=== PATIENT | female | born 1975 | race Caucasian/White ===

== ENCOUNTER 2016-07-22 19:41 | Inpatient (IN) | payer MEDICAID ==
--- NOTE | 2016-07-22 19:57 | ER Document Report ---
ED Medical Screen (RME) - General Stated Complaint: FEVER Mode of Arrival: Medic Information source: Patient Notes: pt c/o cough, fever, and hemoptysis. Pt states she has had a fever for the past 4 days with cough just starting yesterday. Pt c/o dizziness. Hx aortic valve replacement, cva TRAVEL OUTSIDE OF THE [place] IN LAST 30 DAYS: No - Related Data Allergies/Adverse Reactions: codeine [Codeine] Allergy (Mild, Verified 03/06/16 16:53) Nausea "STOMACH BURNING" Past Medical History - Past Medical History Cardiac Medical History: Denies: Hx Coronary Artery Disease, Hx Heart Attack, Hx Hypertension Pulmonary Medical History: Denies: Hx Asthma, Hx Bronchitis, Hx COPD, Hx Pneumonia Neurological Medical History: Reports: Hx Cerebrovascular Accident Endocrine Medical History: Denies: Hx Diabetes Mellitus Type 2 Renal/ Medical History: Reports: Hx Kidney Stones GI Medical History: Denies: Hx Gastritis, Hx Gastroesophageal Reflux Disease Musculoskeltal Medical History: Reports Hx Arthritis - Hips Past Surgical History: Reports: Hx Cardiac Surgery - mechanical aortic valve replacement, Hx Section - x2, Hx Orthopedic Surgery - L5 S1 fusion, Hx Tubal Ligation - Immunizations Hx Diphtheria, Pertussis, Tetanus Vaccination: Yes Physical Exam - Respiratory Respiratory status: No respiratory distress Breath sounds: Productive cough
[2016-07-22 21:44] LABS: HEMATOCRIT 35.2 % (36.0-47.0); HEMOGLOBIN 12.1 g/dL (12.0-15.5); HGB HCT DIFFERENCE 1.1; MEAN CORPUSCULAR HEMOGLOBIN 29.8 pg (27.0-33.4); MEAN CORPUSCULAR HGB CONC 34.3 g/dL (32.0-36.0); MEAN CORPUSCULAR VOLUME 87 fl (80-97); RED BLOOD COUNT 4.06 10^6/uL (3.72-5.28); RED CELL DISTRIBUTION WIDTH 14.2 % (11.5-14.0); WHITE BLOOD COUNT 15.6 10^3/uL (4.0-10.5)
[2016-07-22 22:03] LABS: BAND NEUTROPHILS % (MANUAL) 5 % (3-5); BASOPHILS % (MANUAL) 0 % (0-2); EOSINOPHILS % (MANUAL) 0 % (0-6); LYMPHOCYTES % (MANUAL) 3 % (13-45); TOTAL CELLS COUNTED 100
[2016-07-22 22:05] LABS: ANISOCYTOSIS SLIGHT; PLATELET CLUMPS PRESENT; POLYCHROMASIA SLIGHT; TOXIC VACUOLATION PRESENT
[2016-07-22 22:16] LABS: ALANINE AMINOTRANSFERASE 141 U/L (9-52); ALBUMIN 3.9 g/dL (3.5-5.0); ALKALINE PHOSPHATASE 182 U/L (38-126); ANION GAP 12 (5-19); ASPARTATE AMINO TRANSFERASE 83 U/L (14-36); BILIRUBIN,TOTAL 0.6 mg/dL (0.2-1.3); BLOOD UREA NITROGEN 13 mg/dL (7-20); CALCIUM 9.6 mg/dL (8.4-10.2); CARBON DIOXIDE 27 mmol/L (22-30); CHLORIDE 100 mmol/L (98-107); CREATININE RESULT 0.62 mg/dL (0.52-1.25); GLUCOSE 114 mg/dL (75-110); POTASSIUM 3.6 mmol/L (3.6-5.0)
[2016-07-22] MEDS ORDERED: CEFTRIAXONE 1 GM/D5W RTU 50 ML IV ONE (22:22)
[2016-07-22] MEDS ORDERED: AZITHROMYCIN 250 MG TABLET PO ONE (22:22)
[2016-07-22] MEDS ORDERED: NORMAL SALINE 1000 ML 1,000 ML IV ONE (22:22)
[2016-07-22 22:32] LABS: PROTHROMBIN TIME 85.4 SEC (11.4-15.4)
--- NOTE | 2016-07-22 22:34 | EKG REPORT ---
SEVERITY:- ABNORMAL ECG - SINUS TACHYCARDIA VENTRICULAR TRIGEMINY PROBABLE LEFT ATRIAL ABNORMALITY NONSPECIFIC INFEROLATERAL ST CHANGES : Confirmed by: Barry Mccarthy MD 22-Jul-2016 22:33:40
--- NOTE | 2016-07-22 23:24 | ER Document Report ---
ED General - General Chief Complaint: Fever Stated Complaint: FEVER Mode of Arrival: Medic Notes: Patient is a 40-year-old female with past medical history of rheumatic fever with subsequent aortic valve replacement with mechanical heart valve who presents with 2 days of progressively worsening cough, sputum production and shortness of breath. She has had a fever of 102.7F at home. She has used Tylenol at home at with improvement of the fever. Denies a history of similar symptoms in the past. She has not had any sick contacts. She has not spoken to her primary care physician regarding today's concerns. Nothing improves or worsens or symptoms. She does note associated nausea without vomiting. States she "feels terrible". TRAVEL OUTSIDE OF THE [place] IN LAST 30 DAYS: No - Related Data Allergies/Adverse Reactions: codeine [Codeine] Allergy (Mild, Verified 03/06/16 16:53) Nausea "STOMACH BURNING" Home Medications: Current Home Medications Hydrocodone/Acetaminophen [Vicodin Es 7.5-300 mg Tablet] 1 tab PO BID 07/22/16 [ History] Metoprolol Tartrate 25 mg PO QHS 07/22/16 [History] Zolpidem Tartrate [Ambien 5 mg Tablet] 5 mg PO QHS 07/22/16 [History] Past Medical History - General Information source: Patient - Social History Smoking Status: Never Smoker Frequency of alcohol use: None Drug Abuse: None Lives with: Spouse/Significant other Family History: Reviewed & Not Pertinent - Past Medical History Cardiac Medical History: Denies: Hx Coronary Artery Disease, Hx Heart Attack, Hx Hypertension Pulmonary Medical History: Denies: Hx Asthma, Hx Bronchitis, Hx COPD, Hx Pneumonia Neurological Medical History: Reports: Hx Cerebrovascular Accident Endocrine Medical History: Denies: Hx Diabetes Mellitus Type 2 Renal/ Medical History: Reports: Hx Kidney Stones GI Medical History: Denies: Hx Gastritis, Hx Gastroesophageal Reflux Disease Musculoskeltal Medical History: Reports Hx Arthritis - Hips Past Surgical History: Reports: Hx Cardiac Surgery - mechanical aortic valve replacement, Hx Section - x2, Hx Orthopedic Surgery - L5 S1 fusion, Hx Tubal Ligation - Immunizations Hx Diphtheria, Pertussis, Tetanus Vaccination: Yes Review of Systems - Review of Systems Notes: Constitutional: Positive for fever. HENT: Negative for sore throat. Eyes: Negative for visual changes. Cardiovascular: Negative for chest pain. Respiratory: Positive for shortness of breath. Gastrointestinal: Negative for abdominal pain, vomiting or diarrhea. Genitourinary: Negative for dysuria. Musculoskeletal: Negative for back pain. Skin: Negative for rash. Neurological: Negative for headaches, weakness or numbness. 10 point ROS negative except as marked above and in HPI. Physical Exam - Vital signs Vitals: Temp Pulse Resp BP Pulse Ox 99.9 F 113 H 18 106/75 97 07/22/16 19:53 07/22/16 19:53 07/22/16 19:53 07/22/16 19:53 07/22/16 19:53 Interpretation: Tachycardic Notes: PHYSICAL EXAMINATION: GENERAL: Moderately ill in appearance but in no acute distress HEAD: Atraumatic, normocephalic. EYES: Pupils equal round and reactive to light, extraocular movements intact, sclera anicteric, conjunctiva are normal. ENT: nares patent, oropharynx clear without exudates. Dry mucous membranes. NECK: Normal range of motion, supple without lymphadenopathy LUNGS: Faint rhonchi bilaterally. Air movement bilaterally. Mild tachypnea with respiratory rate of 24. No respiratory distress. HEART: Regular tachycardia with a mechanical click. ABDOMEN: Soft, nontender, normoactive bowel sounds. No guarding, no rebound. No masses appreciated. EXTREMITIES: Normal range of motion, no pitting or edema. No cyanosis. NEUROLOGICAL: No focal neurological deficits. Moves all extremities spontaneously and on command. PSYCH: Normal mood, normal affect. SKIN: Warm, Dry, normal turgor, no rashes or lesions noted. Course - Re-evaluation Re-evalutation: 07/23/16 04:08 Patient presents with sepsis likely secondary to multifocal pneumonia seen on chest x-ray. She does have clinical history that is consistent with this diagnosis. She did arrive tachycardic, tachypneic, and has been febrile up to 102.7 at home. She does have an elevated white blood cell count. No respiratory distress. Her INR is supratherapeutic at 10 but she does not have any active bleeding to warrant emergent reversal. Given her overall ill appearance, initial vitals, laboratories, and finding of multifocal pneumonia as well as severely supratherapeutic INR, she has been admitted to the hospitalist Dr. Soliz this time. - Vital Signs Vital signs: Temp Pulse Resp BP Pulse Ox 98.1 F 76 19 113/66 98 07/23/16 02:24 07/23/16 02:24 07/23/16 02:24 07/23/16 02:24 07/23/16 02:24 - Laboratory Result Diagrams: 07/22/16 21:34 07/22/16 21:34 Laboratory results interpreted by me: 07/22/16 07/22/16 07/22/16 21:34 21:34 22:08 WBC 15.6 H Hct 35.2 L RDW 14.2 H Seg Neuts % (Manual) 89 H Lymphocytes % (Manual) 3 L Monocytes % (Manual) 2 L Abs Neuts (Manual) 14.7 H PT 85.4 H* INR 10.03 H* Glucose 114 H AST 83 H ALT 141 H Alkaline Phosphatase 182 H - Diagnostic Test Radiology reviewed: Image reviewed, Reports reviewed Radiology results interpreted by me: 07/23/16 04:09 Chest x-ray: Bilateral infiltrates - EKG Interpretation by Me Additional EKG results interpreted by me: 07/23/16 04:09 Sinus rhythm. Rate 97. Intermittent PVCs. No ST elevations or depressions. QTC 432. Discharge - Discharge Clinical Impression: Multifocal pneumonia Sepsis Qualifiers: Sepsis type: sepsis due to unspecified organism Qualified Code(s): A41.9 - Sepsis, unspecified organism Condition: Fair Disposition: ADMITTED INPATIENT Admitting Provider: [facility] Unit Admitted: Telemetry
[2016-07-23] MEDS ORDERED: IPRATROPIUM/ALBUTEROL 0.5-2.5 MG/3 ML AMPUL NEB PRN (00:50)
[2016-07-23] MEDS ORDERED: GUAIFENESIN SYRP 200 MG/10 ML UDC PO PRN (00:50)
[2016-07-23] MEDS ORDERED: ACETAMINOPHEN 325 MG TABLET PO PRN (00:50)
[2016-07-23] MEDS ORDERED: PROMETHAZINE HCL INJ 25 MG/1 ML VIAL IV PRN (00:57)
--- NOTE | 2016-07-23 01:23 | PDOC H&P ---
History of Present Illness Admission Date/PCP: 07/22/16 23:33 RICHA GUZMAN MD Patient complains of: fever, cough History of Present Illness: AIYANA HARTMAN is a 40 year old female without known underlying chronic pulmonary disease who presents to the emergency room for evaluation of above complaint. Patient has been discussed with emergency room physician who evaluated the patient. 4 day history of fever to 102.9, slightly productive cough some mild dizziness. Streaks of blood in her sputum on occasion, but not very much or very often. Positive nausea, but no vomiting. Intermittent mild heartburn. No bowel movement for several days. Son recently with RSV, along with daughter with a recent upper respiratory tract infection No antibiotic use for at least the past 3 months. No recent change in her Coumadin dosage. However, patient does state she took at least one extra dose of Coumadin this past week. Doesn't take flu vaccinations since she gets "sick" whenever she takes them. Comcomitant medical problems include history of a mechanical aortic valve replacement in 1992, on chronic Coumadin for same, posttraumatic stress disorder, easy bruising, chronic back pain, history of mild reflux, distant history of nephrolithiasis 1, and personal history of stroke in 1994 when with her son, without residual after effects.. Laboratory results are listed in [employer] and are reviewed. X-ray summary results are listed below, with full report(s) reviewed. . EKG reviewed and compared to prior tracing from 12/22/2013. Social history/personal habits: . Has children. Works from home. Active cigarettes per day. No alcohol use. Smokes marijuana. Family History : Children and siblings and father are healthy. Mother is alive , and alcoholic. Allergies/adverse reactions are listed in [employer] and are reviewed. Home medications are reviewed by discussion with patient and review of a hand written list provided by same and are to be reconc[facility]. Home medications initially autopopulated into [employer] may not accurately reflect patient's true medications, dosages, and/or frequencies. REVIEW OF SYSTEMS: Constitutional: See history and present illness. Eyes: Needs glasses but currently does not have any. ENT: No swallowing problems or complaints. No hearing problems or complaints. Pulmonary: See history and present illness. Cardiovascular: No current complaints, including chest pain. Gastrointestinal: See history and present illness. Skin: No current complaints, including rashes. Hematologic: Easy bruising. Neurologic: No current complaints, including numbness or tingling. Musculoskeletal: Chronic back pain. Psychiatric: Posttraumatic stress disorder. Endocrine: No current complaints, including polyuria. Genitourinary: No current complaints, including dysuria. PHYSICAL EXAMINATION: 5 feet 10 inches tall. 78.3 kg. BMI 24.8 kg/m. Blood pressure 103/69. Pulse 80 and regular. 95% saturation on room air. Respirations are 16 and unlabored. Temperature 99.9. Well-nourished well-developed though somewhat chronically ill-appearing female, appears to feel a bit under the weather, so to speak. Appears a bit older than her stated age. Pleasant awake alert and cooperative, however. Female emergency room nurse Mago is present. Skin is warm and dry. No grossly obvious evidence of rash in areas of skin examined. No subcutaneous nodules palpated. ENT: Hearing grossly normal to normal conversation. Tongue midline on protrusion pink and slightly tacky Eyes: No scleral icterus. Pupils equal and reactive to light at 4 mm. [place] conjunctivae. Neck is supple and nontender to gentle active range of motion and palpation. Midline trachea. No palpable thyroid nodule mass enlargement or tenderness. Lymphatic: No palpable cervical or clavicular nodes. Neck and lymphatic exams limited by patient body habitus. Psychiatric: Reasonable insight into acute and chronic medical issues. Oriented to time location and why here. Lungs: Auscultation reveals clear and equal breath sounds bilaterally. No use of accessory respiratory muscles. Cardiovascular: Heart regular rate and rhythm, without gallop murmur or rub. No carotid or abdominal aortic bruits. No ankle or pedal edema. Faintly palpable dorsalis pedis pulses. Abdomen: soft, slightly distended nontender with positive bowel sounds. Unable to adequately evaluate abdomen for masses or organomegaly due to distention. Extremities: Feet are warm and dry. No calf tenderness to compression. No grossly obvious visual evidence of calf swelling. Gentle manipulation of lower extremities fails to reveal any obvious evidence of injury or instability to knees hips or ankles. Neurologic: Moves upper extremities grossly normally. Patellar reflexes absent. Absent Babinski. Light touch is intact at feet. Dorsiflexion and plantarflexion of feet 5 / 5 and symmetric. Past Medical History Cardiac Medical History: Reports: Other - S/P mechanical AVR, ; on chronic Coumadin for same. Denies: Coronary Artery Disease, DVT, Myocardial Infarction, Hyperlipidema, Hypertension, Pulmonary Embolism Pulmonary Medical History: Denies: Asthma, Bronchitis, Chronic Obstructive Pulmonary Disease (COPD), Pneumonia EENT Medical History: Reports: Eyes - Wears glasses Denies: Ears, Throat Neurological Medical History: Reports: Ischemic CVA - 1994, when with her son. No residual after effects. Denies: Hemorrhagic CVA, Seizures Endocrine Medical History: Denies: Diabetes Mellitus Type 1, Diabetes Mellitus Type 2, Hyperthyroidism, Hypothyroidism Renal/ Medical History: Reports: Nephrolithiasis - Only one episode, a number of years ago. GI Medical History: Reports: Gastroesophageal Reflux Disease - History of same; hasn't bothered her recently. Denies: Cirrhosis, Hepatitis, Peptic Ulcer Disease Musculoskeltal Medical History: Reports: Arthritis - Hips Skin Medical History: Reports: None Denies: Eczema, Psoriasis Psychiatric Medical History: Reports: Post Traumatic Stress Disorder, Substance Abuse, Tobacco Dependency Denies: Alcohol Dependency Hematology: Reports: Anemia, Other - Easy bruising. Infectious Medical History: Denies: Hepatitis B, Hepatitis C Past Surgical History Past Surgical History: Reports: Section - x2, Orthopedic Surgery - L5 S1 fusion, Tubal Ligation, Other - [facility] AVR, '. Social History Information Source: Patient, Emergency Med Personnel, [facility] Records Lives with: Family Smoking Status: Current Every Day Smoker Frequency of Alcohol Use: None Drugs: Marijuana - Advance Directive Resuscitation Status: Full Code Surrogate healthcare decision maker:: Uncertain at this point in time. Family History Family History: Reviewed & Not Pertinent Parental Family History Reviewed: Yes Children Family History Reviewed: Yes Sibling(s) Family History Reviewed.: Yes Medication/Allergy Home Medications: RX: Warfarin Sodium [Coumadin 5 mg Tablet] 5 mg PO QHS 11/05/13 RX: Cyclobenzaprine HCl [Flexeril 10 mg Tablet] 10 mg PO TID #20 tablet RX: Gabapentin [Neurontin 300 mg Capsule] 300 mg PO QAM 06/28/14 RX: Hydrocodone/Acetaminophen [Vicodin Es 7.5-300 mg Tablet] 1 tab PO BID RX: Metoprolol Tartrate 25 mg PO QHS 07/22/16 RX: Zolpidem Tartrate [Ambien 5 mg Tablet] 5 mg PO QHS 07/22/16 RX: Gabapentin [Neurontin] 600 mg PO QHS 07/23/16 Azithromycin [Zithromax Tri-Joselito] 500 mg PO DAILY #1 pkg 07/24/16 Cefuroxime Axetil [Ceftin 500 mg Tablet] 1 tab PO BID #16 tablet 07/24/16 RX: Enoxaparin Sodium [Lovenox Inj 80 mg/0.8 ml Disp.syrin] 75 mg SUBCUT Q12 #4 disp.syrin 07/24/16 Allergies/Adverse Reactions: codeine [Codeine] Allergy (Mild, Verified 03/06/16 16:53) Nausea "STOMACH BURNING" Physical Exam Vital Signs: Temp Pulse Resp BP Pulse Ox 99.9 F 113 H 17 103/69 95 07/22/16 19:53 07/22/16 19:53 07/23/16 00:20 07/23/16 00:20 07/23/16 00:20 Results Impressions: Chest X-Ray 07/22/16 19:54 IMPRESSION: Patchy airspace densities in the left mid lung field as noted above consistent with patchy pneumonic infiltrates. Remaining lung caro are clear Assessment & Plan - Diagnosis (1) Elevated LFTs Is this a current diagnosis for this admission?: YesPlan: Uncertain etiology at this point in time. Denies underlying biliary disease. Follow-up hepatic panel. (2) Pneumonia involving left lung Qualifiers: Pneumonia type: due to unspecified organism Lung location: unspecified part of lung Qualified Code(s): J18.9 - Pneumonia, unspecified organism Is this a current diagnosis for this admission?: YesPlan: Patient will be admitted under pneumonia protocol. Incentive spirometry twice a day. PRN DuoNeb's. Antibiotics will consist of Rocephin and intravenous Zithromax.. I strongly encouraged patient to notify staff should patient feel that respiratory status is worsening. Patient is a full code. I have strongly urged patient to be careful getting out of bed, to avoid a fall with injury. Knee high SCDs for DVT prophylaxis; with supratherapeutic INR, Lovenox or heparin not indicated. Impression and plans were discussed with patient, who concurs. Time spent in evaluation and management of patient: 64 minutes. (3) Supratherapeutic INR Is this a current diagnosis for this admission?: YesPlan: Obviously we'll hold Coumadin. Daily PT/INR. No outward evidence of active bleeding, so will not try to reverse Coumadin at this point in time. (4) Anticoagulated on Coumadin Is this a current diagnosis for this admission?: Yes (5) Chronic low back pain Qualifiers: Back pain laterality: unspecified Sciatica presence: unspecified whether sciatica present Qualified Code(s): M54.5 - Low back pain; G89.29 - Other chronic pain Is this a current diagnosis for this admission?: YesPlan: When necessary pain medication. (6) History of mechanical aortic valve replacement Is this a current diagnosis for this admission?: Yes (7) PTSD (post-traumatic stress disorder) Is this a current diagnosis for this admission?: YesPlan: Follow clinically.Resume home medications as appropriate once these have been reviewed. - Inpatient Certification Based on my medical assessment, after consideration of the patient's comorbidities, presenting symptoms, or acuity I expect that the services needed warrant INPATIENT care.: Yes I certify that my determination is in accordance with my understanding of Medicare's requirements for reasonable and necessary INPATIENT services [42 CFR 412.3e].: Yes Medical Necessity: Need Close Monitoring Due to Risk of Patient Decompensation, Need For Continuous Telemetry Monitoring, Need for Nebulizer Therapy and Monitoring of Response, Need for IV Antibiotics, Risk of Complication if Not Cared For in Hospital Post Hospital Care: D/C or Transfer Summary
[2016-07-23] MEDS ORDERED: POTASSI CL 20 MEQ/NS 1L 1,000 ML IV PRN (01:24)
[2016-07-23] MEDS ORDERED: INFLUENZA ADLT QUAD (36MOS+) 2016-17 VAC 0.5 ML SYR IM PRN (02:46)
[2016-07-23 07:19] LABS: ABSOLUTE MONOCYTES (AUTO) 0.4 10^3/uL (0.1-1.4); BASOPHILS % (AUTO) 0.3 % (0-2); HEMATOCRIT 32.7 % (36.0-47.0); HEMOGLOBIN 11.1 g/dL (12.0-15.5); HGB HCT DIFFERENCE 0.6; LYMPHOCYTES % (AUTO) 6.6 % (13-45); MEAN CORPUSCULAR HEMOGLOBIN 29.8 pg (27.0-33.4); MEAN CORPUSCULAR VOLUME 88 fl (80-97); MONOCYTES % (AUTO) 2.5 % (3-13); RED BLOOD COUNT 3.74 10^6/uL (3.72-5.28); RED CELL DISTRIBUTION WIDTH 14.2 % (11.5-14.0); SEGMENTED NEUTROPHILS % (AUTO) 90.6 % (42-78); WHITE BLOOD COUNT 14.4 10^3/uL (4.0-10.5)
[2016-07-23 08:06] LABS: ALBUMIN 3.6 g/dL (3.5-5.0); BILIRUBIN,TOTAL 0.4 mg/dL (0.2-1.3); TOTAL PROTEIN 6.4 g/dL (6.3-8.2)
[2016-07-23] MEDS ORDERED: LORAZEPAM 0.5 MG TABLET PO PRN ×2 (08:41→17:42)
[2016-07-23] MEDS ORDERED: LORAZEPAM 0.5 MG TABLET ONE (09:09)
[2016-07-23] MEDS ORDERED: ZOLPIDEM TARTRATE 5 MG TABLET PO PRN (09:34)
[2016-07-23] MEDS ORDERED: BENZONATATE 100 MG CAPSULE PO PRN (10:00)
[2016-07-23] MEDS ORDERED: AZITHROMYCIN 500 MG in DEXTROSE 5%-WATER 250 ML IV SCH (10:00)
[2016-07-23] MEDS ORDERED: CEFTRIAXONE 1 GM/D5W RTU 50 ML IV SCH (10:00)
[2016-07-23] MEDS ORDERED: HYDROCODONE PO PRN (10:01)
[2016-07-23] MEDS ORDERED: ACETAMINOPHEN PO PRN (10:01)
[2016-07-23] MEDS ORDERED: NICOTINE 21 MG/24 HR PATCH.TD24 TD PRN (10:01)
[2016-07-23] MEDS ORDERED: PHYTONADIONE 5 MG TABLET PO ONE (10:15)
[2016-07-23 10:41] LABS: HEMATOCRIT 32.9 % (36.0-47.0); HEMOGLOBIN 11.1 g/dL (12.0-15.5); HGB HCT DIFFERENCE 0.4; MEAN CORPUSCULAR HEMOGLOBIN 29.6 pg (27.0-33.4); MEAN CORPUSCULAR HGB CONC 33.9 g/dL (32.0-36.0); MEAN CORPUSCULAR VOLUME 87 fl (80-97); RED BLOOD COUNT 3.76 10^6/uL (3.72-5.28); RED CELL DISTRIBUTION WIDTH 14.3 % (11.5-14.0); WHITE BLOOD COUNT 15.7 10^3/uL (4.0-10.5)
[2016-07-23 11:20] LABS: ANION GAP 14 (5-19); BLOOD UREA NITROGEN 16 mg/dL (7-20); CALCIUM 8.9 mg/dL (8.4-10.2); CARBON DIOXIDE 24 mmol/L (22-30); CHLORIDE 104 mmol/L (98-107); CREATININE RESULT 0.52 mg/dL (0.52-1.25); GLUCOSE 168 mg/dL (75-110); POTASSIUM 3.3 mmol/L (3.6-5.0); SODIUM 141.5 mmol/L (137-145)
[2016-07-23] MEDS: METOPROLOL SUCCINATE 25 MG TAB.SR.24H PO SCH (12:10)
[2016-07-23] MEDS: CYCLOBENZAPRINE HCL 10 MG TABLET PO PRN ×2 (12:11→23:53)
[2016-07-23] MEDS: GUAIFENESIN 600 MG TABLET.SA PO SCH ×2 (12:11→23:51)
[2016-07-23] MEDS: HYDROCODONE/ACETAMINOPHEN 7.5-325 MG TABLET PO PRN (13:58)
[2016-07-23] MEDS ORDERED: POTASSIUM CHLORIDE 10 MEQ TABLET.SA PO ONE (15:16)
--- NOTE | 2016-07-23 15:23 | PDOC PROGRESS REPORT ---
Subjective Progress Note for:: 07/23/16 Subjective:: The patient was seen earlier today on rounds. The patient admits to dyspnea but is okay at rest. The patient states she's been producing sputum. Overall symptoms have improved in comparison to presentation. The patient denies any nausea, vomiting, diarrhea,dizziness, chest pain, heart palpitations, fevers, or chills. The patient has remained afebrile. Blood pressures have been in a good range. When prompted the patient voices no other concerns at this time. Review of systems: The rest of the review of systems is negative. Physical Exam Vital Signs: Temp Pulse Resp BP Pulse Ox 98.2 F 92 17 114/73 99 07/23/16 11:35 07/23/16 11:35 07/23/16 11:35 07/23/16 11:35 07/23/16 11:35 Intake & Output 07/21/16 07/22/16 07/23/16 23:59 23:59 23:59 Intake Total 1850 Output Total 600 Balance 1250 General appearance: PRESENT: no acute distress, cooperative, well-developed, well-nourished Head exam: PRESENT: atraumatic, normocephalic Eye exam: PRESENT: conjunctiva pink, EOMI, PERRLA. ABSENT: scleral icterus Ear exam: PRESENT: normal external ear exam Mouth exam: PRESENT: moist, tongue midline Neck exam: ABSENT: carotid bruit, JVD, lymphadenopathy, thyromegaly Respiratory exam: PRESENT: decreased breath sounds, symmetrical, unlabored, wheezes. ABSENT: rales, rhonchi, tachypnea Cardiovascular exam: PRESENT: clicks, RRR. ABSENT: diastolic murmur, rubs, systolic murmur Pulses: PRESENT: normal dorsalis pedis pul Vascular exam: PRESENT: normal capillary refill GI/Abdominal exam: PRESENT: normal bowel sounds, soft. ABSENT: distended, guarding, mass, organolmegaly, rebound, tenderness Rectal exam: PRESENT: deferred Extremities exam: PRESENT: full ROM. ABSENT: calf tenderness, clubbing, pedal edema Neurological exam: PRESENT: alert, awake, oriented to person, oriented to place , oriented to time, oriented to situation, CN II-XII grossly intact. ABSENT: motor sensory deficit Psychiatric exam: PRESENT: appropriate affect, normal mood. ABSENT: homicidal ideation, suicidal ideation Skin exam: PRESENT: dry, intact, warm. ABSENT: cyanosis, rash Results Laboratory Results: 07/23/16 10:30 07/23/16 10:30 07/23/16 07/23/16 07/23/16 07:04 07:04 10:30 WBC 14.4 H 15.7 H RBC 3.74 3.76 Hgb 11.1 L 11.1 L Hct 32.7 L 32.9 L MCV 88 87 MCH 29.8 29.6 MCHC 34.0 33.9 RDW 14.2 H 14.3 H Plt Count 182 210 Seg Neutrophils % 90.6 H Lymphocytes % 6.6 L Monocytes % 2.5 L Eosinophils % 0.0 Basophils % 0.3 Absolute Neutrophils 13.0 H Absolute Lymphocytes 1.0 Absolute Monocytes 0.4 Absolute Eosinophils 0.0 Absolute Basophils 0.0 Sodium Potassium Chloride Carbon Dioxide Anion Gap BUN Creatinine Est GFR ( Amer) Est GFR (Non-Af Amer) Glucose Calcium Total Bilirubin 0.4 AST 51 H ALT 110 H Alkaline Phosphatase 149 H Total Protein 6.4 Albumin 3.6 07/23/16 10:30 WBC RBC Hgb Hct MCV MCH MCHC RDW Plt Count Seg Neutrophils % Lymphocytes % Monocytes % Eosinophils % Basophils % Absolute Neutrophils Absolute Lymphocytes Absolute Monocytes Absolute Eosinophils Absolute Basophils Sodium 141.5 Potassium 3.3 L Chloride 104 Carbon Dioxide 24 Anion Gap 14 BUN 16 Creatinine 0.52 Est GFR ( Amer) > 60 Est GFR (Non-Af Amer) > 60 Glucose 168 H Calcium 8.9 Total Bilirubin AST ALT Alkaline Phosphatase Total Protein Albumin Impressions: Chest X-Ray 07/22/16 19:54 IMPRESSION: Patchy airspace densities in the left mid lung field as noted above consistent with patchy pneumonic infiltrates. Remaining lung caro are clear Assessment & Plan - Diagnosis (1) Elevated LFTs Is this a current diagnosis for this admission?: YesPlan: Patient denies any abdominal pain will. Will repeat these in the a.m. If the patient develops other symptoms may possibly obtain right upper quadrant ultrasound. (2) Multifocal pneumonia Is this a current diagnosis for this admission?: YesPlan: The patient symptoms have improved will continue current medications and add Mucinex. (3) Sepsis Qualifiers: Sepsis type: sepsis due to unspecified organism Qualified Code(s): A41.9 - Sepsis, unspecified organism Is this a current diagnosis for this admission?: YesPlan: No evidence of shock (4) Supratherapeutic INR Is this a current diagnosis for this admission?: YesPlan: Patient has had 1 point drop in hemoglobin. The patient was producing blood- tinged sputum. Upon my assessment the patient had had a bowel movement that did have malodorous that could be associated with GI bleed. The patient denied any melena, hematochezia, or bright red bleeding per rectum. However given these findings will reverse with vitamin K and monitor closely for evidence of pronounced bleeding will defer fresh frozen plasma for now. repeat INR in the afternoon if subtherapeutic will start heparin drip. (5) Anticoagulated on Coumadin Is this a current diagnosis for this admission?: Yes (6) Chronic low back pain Qualifiers: Back pain laterality: unspecified Sciatica presence: unspecified whether sciatica present Qualified Code(s): M54.5 - Low back pain; G89.29 - Other chronic pain Is this a current diagnosis for this admission?: YesPlan: Will continue home medications. (7) History of mechanical aortic valve replacement Is this a current diagnosis for this admission?: Yes (8) PTSD (post-traumatic stress disorder) Is this a current diagnosis for this admission?: YesPlan: Will continue home medications. (9) Hypokalemia Is this a current diagnosis for this admission?: YesPlan: Will continue home medications. - Time Time Spent with patient: on this followup including assessment, plan, physical examination, and patient education is 35 minutes. Time Spent with patient: 35 or more minutes Medications reviewed and adjusted accordingly: Yes Anticipated discharge: Home Within: within 48 hours Disposition: The patient is a full code. Pending patient's symptomatology and diagnostic findings will reevaluate in the a.m.
[2016-07-23 15:44] LABS: APPEARANCE,URINE CLEAR; BILIRUBIN,URINE NEGATIVE (NEGATIVE); GLUCOSE, URINE NEGATIVE (NEGATIVE); KETONES,URINE NEGATIVE (NEGATIVE); LEUKOCYTE ESTERASE,URINE NEGATIVE (NEGATIVE); NITRITE,URINE NEGATIVE (NEGATIVE); PROTEIN,URINE NEGATIVE (NEGATIVE); URINE SPECIFIC GRAVITY 1.015; UROBILINOGEN,URINE NEGATIVE mg/dL (<2.0)
[2016-07-23 16:56] LABS: PROTHROMBIN TIME 61.1 SEC (11.4-15.4)
[2016-07-23] MEDS ORDERED: GABAPENTIN 300 MG CAPSULE PO SCH (22:00)
[2016-07-23] MEDS ORDERED: METOPROLOL TARTRATE 25 MG TABLET PO SCH (22:00)
[2016-07-24] MEDS: HYDROCODONE/ACETAMINOPHEN 7.5-325 MG TABLET PO PRN ×2 (01:06→11:20)
[2016-07-24 05:17] LABS: HEMATOCRIT 28.5 % (36.0-47.0); HEMOGLOBIN 9.6 g/dL (12.0-15.5); HGB HCT DIFFERENCE 0.3; MEAN CORPUSCULAR HEMOGLOBIN 29.5 pg (27.0-33.4); MEAN CORPUSCULAR HGB CONC 33.7 g/dL (32.0-36.0); MEAN CORPUSCULAR VOLUME 88 fl (80-97); RED BLOOD COUNT 3.25 10^6/uL (3.72-5.28); RED CELL DISTRIBUTION WIDTH 14.6 % (11.5-14.0); WHITE BLOOD COUNT 13.4 10^3/uL (4.0-10.5)
[2016-07-24 05:49] LABS: ALANINE AMINOTRANSFERASE 73 U/L (9-52); ALKALINE PHOSPHATASE 111 U/L (38-126); ANION GAP 10 (5-19); ASPARTATE AMINO TRANSFERASE 23 U/L (14-36); BILIRUBIN,TOTAL 0.4 mg/dL (0.2-1.3); BLOOD UREA NITROGEN 16 mg/dL (7-20); CALCIUM 8.7 mg/dL (8.4-10.2); CARBON DIOXIDE 23 mmol/L (22-30); CHLORIDE 109 mmol/L (98-107); CREATININE RESULT 0.63 mg/dL (0.52-1.25); GLUCOSE 92 mg/dL (75-110); POTASSIUM 3.9 mmol/L (3.6-5.0); SODIUM 142.2 mmol/L (137-145); TOTAL PROTEIN 5.4 g/dL (6.3-8.2)
[2016-07-24] MEDS ORDERED: GABAPENTIN 300 MG CAPSULE PO SCH (08:00)
--- NOTE | 2016-07-24 09:57 | PDOC DISCHARGE SUMMARY ---
General - Admit/Disc Date/PCP Admission Date/Primary Care Provider: 07/23/16 00:50 RICHA GUZMAN MD Discharge Date: 07/24/16 - Discharge Diagnosis (1) Multifocal pneumonia Is this a current diagnosis for this admission?: Yes (2) Sepsis Is this a current diagnosis for this admission?: Yes (3) Supratherapeutic INR Is this a current diagnosis for this admission?: YesSummary: Corrected (4) Anticoagulated on Coumadin Is this a current diagnosis for this admission?: Yes (5) Chronic low back pain Is this a current diagnosis for this admission?: Yes (6) PTSD (post-traumatic stress disorder) Is this a current diagnosis for this admission?: Yes (7) Hypokalemia Is this a current diagnosis for this admission?: YesSummary: Repleted (8) Elevated LFTs Is this a current diagnosis for this admission?: YesSummary: Improved (9) History of mechanical aortic valve replacement Is this a current diagnosis for this admission?: Yes - Additional Information Resuscitation Status: Full Code Discharge Diet: As Tolerated, Regular Discharge Activity: Activity As Tolerated Home Medications: Warfarin Sodium [Coumadin 5 mg Tablet] 5 mg PO QHS 11/05/13 Cyclobenzaprine HCl [Flexeril 10 mg Tablet] 10 mg PO TID #20 tablet 06/28/14 Gabapentin [Neurontin 300 mg Capsule] 300 mg PO QAM 06/28/14 Hydrocodone/Acetaminophen [Vicodin Es 7.5-300 mg Tablet] 1 tab PO BID 07/22/16 Metoprolol Tartrate 25 mg PO QHS 07/22/16 Zolpidem Tartrate [Ambien 5 mg Tablet] 5 mg PO QHS 07/22/16 Gabapentin [Neurontin] 600 mg PO QHS 07/23/16 Azithromycin [Zithromax Tri-Joselito] 500 mg PO DAILY #1 pkg 07/24/16 Cefuroxime Axetil [Ceftin 500 mg Tablet] 1 tab PO BID #16 tablet 07/24/16 Enoxaparin Sodium [Lovenox Inj 80 mg/0.8 ml Disp.syrin] 75 mg SUBCUT Q12 #4 disp.syrin 07/24/16 History of Present Illness Patient complains of: Shortness of breath History of Present Illness: AIAYNA HARTMAN is a 40 year old female without known underlying chronic pulmonary disease who presents to the emergency room for evaluation of shortness of breath and sputum production. The patient provided a 4 day history of fever to 102.9, slightly productive cough some mild dizziness. Streaks of blood in her sputum on occasion, but not very much or very often. Positive nausea, but no vomiting. Intermittent mild heartburn. No bowel movement for several days. Son recently with RSV, along with daughter with a recent upper respiratory tract infection No antibiotic use for at least the past 3 months. No recent change in her Coumadin dosage. However, patient does state she took at least one extra dose of Coumadin this past week. Doesn't take flu vaccinations since she gets "sick" whenever she takes them. Comcomitant medical problems include history of a mechanical aortic valve replacement in 1992, on chronic Coumadin for same, posttraumatic stress disorder, easy bruising, chronic back pain, history of mild reflux, distant history of nephrolithiasis 1, and personal history of stroke in 1994 when with her son, without residual after effects. The patient had findings on chest x-ray was suggestive of multifocal pneumonia and therefore the patient was referred to the hospitalist remission and management. Hospital Course Hospital Course: The patient was placed on antibiotic(s), nebulizers, expectorants, supplemental O2, incentive spirometry and flutter valve. Sputum culture was obtained. The patient was weaned from O2 and symptoms overall improved. On the morning of discharge the patient is quite eager for discharge given that it is her birthday and the patient is not sleeping well in the bed. The patient is quite anxious and actually threatened to leave AMA yesterday. The patient was accommodated and encouraged to stay. The patient did have one episode of blood streaking in her sputum. Patient was found to have a supratherapeutic INR. Given the streaking in her sputum as well as drop in hemoglobin the patient's INR was corrected with a dose of oral vitamin K. The patient was placed on Lovenox and given the resolution of any evidence of bleeding the patient's Coumadin will be resumed with a Lovenox bridge. The patient has had a drop in hemoglobin but has not had no evidence of travon bleeding including gross hematuria, bright red bleeding per rectum, melena, hematochezia, or MIAH to emesis. No issues with hemoptysis at this time. I have instructed the patient to follow of very closely with primary care within the next 1-2 days for repeat hemoglobin and repeat INR. Has been instructed orally and in written form to please return if symptoms of bleeding to occur (please see discharge plan). Physical Exam Vital Signs: Temp Pulse Resp BP Pulse Ox 98.1 F 71 16 97/50 L 100 07/24/16 04:59 07/24/16 04:59 07/24/16 04:59 07/24/16 04:59 07/24/16 04:59 Intake & Output 07/22/16 07/23/16 07/24/16 23:59 23:59 23:59 Intake Total 1850 1500 Output Total 600 Balance 1250 1500 General appearance: PRESENT: no acute distress, cooperative, well-developed, well-nourished Head exam: PRESENT: atraumatic, normocephalic Eye exam: PRESENT: conjunctiva pink, EOMI, PERRLA. ABSENT: scleral icterus Ear exam: PRESENT: normal external ear exam Mouth exam: PRESENT: moist, tongue midline Neck exam: ABSENT: carotid bruit, JVD, lymphadenopathy, thyromegaly Respiratory exam: PRESENT: clear to auscultation xena - Much improved in comparison to yesterday, symmetrical, unlabored. ABSENT: rales, rhonchi, tachypnea, wheezes Cardiovascular exam: PRESENT: clicks, RRR. ABSENT: diastolic murmur, rubs, systolic murmur Pulses: PRESENT: normal dorsalis pedis pul Vascular exam: PRESENT: normal capillary refill GI/Abdominal exam: PRESENT: normal bowel sounds, soft. ABSENT: distended, guarding, mass, organolmegaly, rebound, tenderness Rectal exam: PRESENT: deferred Extremities exam: PRESENT: full ROM. ABSENT: calf tenderness, clubbing, pedal edema Neurological exam: PRESENT: alert, awake, oriented to person, oriented to place , oriented to time, oriented to situation, CN II-XII grossly intact. ABSENT: motor sensory deficit Psychiatric exam: PRESENT: appropriate affect, normal mood. ABSENT: homicidal ideation, suicidal ideation Skin exam: PRESENT: dry, intact, warm. ABSENT: cyanosis, rash Results Laboratory Results: Labs- All tests 24 hr 07/23/16 07/23/16 07/23/16 10:30 10:30 15:15 WBC 15.7 H RBC 3.76 Hgb 11.1 L Hct 32.9 L MCV 87 MCH 29.6 MCHC 33.9 RDW 14.3 H Plt Count 210 PT INR Sodium 141.5 Potassium 3.3 L Chloride 104 Carbon Dioxide 24 Anion Gap 14 BUN 16 Creatinine 0.52 Est GFR ( Amer) > 60 Est GFR (Non-Af Amer) > 60 Glucose 168 H Calcium 8.9 Total Bilirubin Direct Bilirubin AST ALT Alkaline Phosphatase Total Protein Albumin Urine Color YELLOW Urine Appearance CLEAR Urine pH 6.0 Ur Specific [place] 1.015 Urine Protein NEGATIVE Urine Glucose (UA) NEGATIVE Urine Ketones NEGATIVE Urine Blood MODERATE H Urine Nitrite NEGATIVE Urine Bilirubin NEGATIVE Urine Urobilinogen NEGATIVE Ur Leukocyte Esterase NEGATIVE Urine WBC (Auto) 3 Urine RBC (Auto) 133 Squamous Epi Cells Auto 2 Urine Ascorbic Acid NEGATIVE Labs- Last Values WBC 13.4 10^3/uL (4.0-10.5) H 07/24/16 04:30 RBC 3.25 10^6/uL (3.72-5.28) L 07/24/16 04:30 Hgb 9.6 g/dL (12.0-15.5) L 07/24/16 04:30 Hct 28.5 % (36.0-47.0) L 07/24/16 04:30 MCV 88 fl (80-97) 07/24/16 04:30 MCH 29.5 pg (27.0-33.4) 07/24/16 04:30 MCHC 33.7 g/dL (32.0-36.0) 07/24/16 04:30 RDW 14.6 % (11.5-14.0) H 07/24/16 04:30 Plt Count 192 10^3/uL (150-450) 07/24/16 04:30 Total Counted 100 07/22/16 21:34 Seg Neutrophils % 90.6 % (42-78) H 07/23/16 07:04 Seg Neuts % (Manual) 89 % (42-78) H 07/22/16 21:34 Band Neutrophils % 5 % (3-5) 07/22/16 21:34 Lymphocytes % 6.6 % (13-45) L 07/23/16 07:04 Lymphocytes % (Manual) 3 % (13-45) L 07/22/16 21:34 Atypical Lymphs % 1 % (0) 07/22/16 21:34 Monocytes % 2.5 % (3-13) L 07/23/16 07:04 Monocytes % (Manual) 2 % (3-13) L 07/22/16 21:34 Eosinophils % 0.0 % (0-6) 07/23/16 07:04 Eosinophils % (Manual) 0 % (0-6) 07/22/16 21:34 Basophils % 0.3 % (0-2) 07/23/16 07:04 Basophils % (Manual) 0 % (0-2) 07/22/16 21:34 Absolute Neutrophils 13.0 10^3/uL (1.7-8.2) H 07/23/16 07:04 Abs Neuts (Manual) 14.7 10^3/uL (1.7-8.2) H 07/22/16 21:34 Absolute Lymphocytes 1.0 10^3/uL (0.5-4.7) 07/23/16 07:04 Abs Lymphs (Manual) 0.6 10^3/uL (0.5-4.7) 07/22/16 21:34 Absolute Monocytes 0.4 10^3/uL (0.1-1.4) 07/23/16 07:04 Abs Monocytes (Manual) 0.3 10^3/uL (0.1-1.4) 07/22/16 21:34 Absolute Eosinophils 0.0 10^3/uL (0.0-0.6) 07/23/16 07:04 Absolute Eos (Manual) 0.0 10^3/uL (0.0-0.6) 07/22/16 21:34 Absolute Basophils 0.0 10^3/uL (0.0-0.2) 07/23/16 07:04 Abs Basophils (Manual) 0.0 10^3/uL (0.0-0.2) 07/22/16 21:34 Toxic Vacuolation PRESENT 07/22/16 21:34 Clumped Platelets PRESENT 07/22/16 21:34 Large Platelets PRESENT 07/22/16 21:34 Platelet Comment ADEQUATE 07/22/16 21:34 Polychromasia SLIGHT 07/22/16 21:34 Anisocytosis SLIGHT 07/22/16 21:34 PT 20.0 SEC (11.4-15.4) H D 07/24/16 04:30 INR 1.63 07/24/16 04:30 Sodium 142.2 mmol/L (137-145) 07/24/16 04:30 Potassium 3.9 mmol/L (3.6-5.0) 07/24/16 04:30 Chloride 109 mmol/L (98-107) H 07/24/16 04:30 Carbon Dioxide 23 mmol/L (22-30) 07/24/16 04:30 Anion Gap 10 (5-19) 07/24/16 04:30 BUN 16 mg/dL (7-20) 07/24/16 04:30 Creatinine 0.63 mg/dL (0.52-1.25) 07/24/16 04:30 Est GFR ( Amer) > 60 (>60) 07/24/16 04:30 Est GFR (Non-Af Amer) > 60 (>60) 07/24/16 04:30 Glucose 92 mg/dL (75-110) 07/24/16 04:30 Lactic Acid 0.9 mmol/L (0.7-2.1) 07/22/16 23:30 Calcium 8.7 mg/dL (8.4-10.2) 07/24/16 04:30 Total Bilirubin 0.4 mg/dL (0.2-1.3) 07/24/16 04:30 Direct Bilirubin 0.0 mg/dL (0.0-0.3) 07/24/16 04:30 AST 23 U/L (14-36) 07/24/16 04:30 ALT 73 U/L (9-52) H 07/24/16 04:30 Alkaline Phosphatase 111 U/L (38-126) 07/24/16 04:30 Total Protein 5.4 g/dL (6.3-8.2) L 07/24/16 04:30 Albumin 3.0 g/dL (3.5-5.0) L 07/24/16 04:30 Urine Color YELLOW 07/23/16 15:15 Urine Appearance CLEAR 07/23/16 15:15 Urine pH 6.0 (5.0-9.0) 07/23/16 15:15 Ur Specific [place] 1.015 07/23/16 15:15 Urine Protein NEGATIVE mg/dL (NEGATIVE) 07/23/16 15:15 Urine Glucose (UA) NEGATIVE mg/dL (NEGATIVE) 07/23/16 15:15 Urine Ketones NEGATIVE mg/dL (NEGATIVE) 07/23/16 15:15 Urine Blood MODERATE (NEGATIVE) H 07/23/16 15:15 Urine Nitrite NEGATIVE (NEGATIVE) 07/23/16 15:15 Urine Bilirubin NEGATIVE (NEGATIVE) 07/23/16 15:15 Urine Urobilinogen NEGATIVE mg/dL (<2.0) 07/23/16 15:15 Ur Leukocyte Esterase NEGATIVE (NEGATIVE) 07/23/16 15:15 Urine WBC (Auto) 3 /HPF 07/23/16 15:15 Urine RBC (Auto) 133 /HPF 07/23/16 15:15 Squamous Epi Cells Auto 2 /HPF 07/23/16 15:15 Urine Ascorbic Acid NEGATIVE (NEGATIVE) 07/23/16 15:15 Influenza A (Rapid) NEGATIVE (NEGATIVE) 07/22/16 23:30 Influenza B (Rapid) NEGATIVE (NEGATIVE) 07/22/16 23:30 Impressions: Chest X-Ray 07/22/16 19:54 IMPRESSION: Patchy airspace densities in the left mid lung field as noted above consistent with patchy pneumonic infiltrates. Remaining lung caro are clear Qualifiers PATEINT BEING DISCHARGED WITH ANY OF THE FOLLOWING DIAGNOSIS?: No Plan Discharge Plan: The patient is to followup with their primary care provider, [ Corni], within one week for hospital followup regarding her Coumadin dosing, hemoglobin rechecked, and pneumonia. Time Spent: Less than 30 Minutes
[2016-07-24] MEDS: GUAIFENESIN 600 MG TABLET.SA PO SCH (09:59)
[2016-07-24] MEDS: METOPROLOL SUCCINATE 25 MG TAB.SR.24H PO SCH (10:00)
[2016-07-24] MEDS ORDERED: ENOXAPARIN SODIUM INJ 80 MG/0.8 ML DISP.SYRIN SUBCUT SCH (10:00)
[2016-07-24] MEDS ORDERED: AZITHROMYCIN 250 MG TABLET PO ONE (10:15)
[2016-07-24] MEDS ORDERED: CEFUROXIME 500 MG TABLET PO ONE (10:15)
[2016-07-24 12:04] LABS: APPEARANCE,URINE CLEAR; BILIRUBIN,URINE NEGATIVE (NEGATIVE); GLUCOSE, URINE NEGATIVE (NEGATIVE); KETONES,URINE NEGATIVE (NEGATIVE); LEUKOCYTE ESTERASE,URINE NEGATIVE (NEGATIVE); NITRITE,URINE NEGATIVE (NEGATIVE); PROTEIN,URINE NEGATIVE (NEGATIVE); URINE SPECIFIC GRAVITY 1.023; UROBILINOGEN,URINE NEGATIVE mg/dL (<2.0)
[2016-07-24 13:17] VITALS: BP 126/97
== END 2016-07-24 14:10 | disposition home or self-care (01) | DRG 871 ==
LOC: ER 19:41 → EH 23:33 → UNDOADMIN 23:33 → EH 07-23 00:50 → 4N 07-23 02:21
PROVIDERS: ADMIT Family Medicine; ATTEND Family Medicine
DX: A41.9 Sepsis, unspecified organism (principal); J18.9 Pneumonia, unspecified organism; E87.6 Hypokalemia; R74.8 Abnormal levels of other serum enzymes; R79.1 Abnormal coagulation profile; M54.5 Low back pain; G89.29 Other chronic pain; F43.10 Post-traumatic stress disorder, unspecified; M16.0 Bilateral primary osteoarthritis of hip; F17.210 Nicotine dependence, cigarettes, uncomplicated; F12.90 Cannabis use, unspecified, uncomplicated; Z79.01 Long term (current) use of anticoagulants; Z86.73 Personal history of transient ischemic attack (TIA), and cerebral infarction without residual deficits; Z95.2 Presence of prosthetic heart valve
CPT/HCPCS: 36415; 71020; 80048; 80053; 80076; 81001; 83605; 85025; 85027; 85610; 87040; 87070; 87077; 87205; 87804; 90686; 93005; 93010; 94640; 94799; 96365; 99285; J0456; J0696; J1650; J3480; J3490; J7030; J7060; J7620

== ENCOUNTER 2017-05-05 00:31 | Emergency (ER) | payer MEDICAID ==
[2017-05-05] MEDS ORDERED: PANTOPRAZOLE SODIUM 40 MG VIAL IV ONE ×2 (00:38→01:50)
[2017-05-05] MEDS ORDERED: CEFTRIAXONE INJ 1000 MG VIAL IV ONE (00:39)
--- NOTE | 2017-05-05 00:43 | ER Document Report ---
ED General - General Stated Complaint: VOMITING BLOOD Time Seen by Provider: 05/05/17 00:38 Notes: Patient is a 41-year-old female presents with complaint of GI bleeding. She had a dark stool earlier today. She is she is feeling okay and then tonight started on unwell. She had multiple dark stools. She then vomited blood. The only member says it was a large amount of red blood. She complains of some mild upper abdominal pain. She has chronic back pain as well. She says she does have some pain in her usual location of her low back but says it is little worse than usual. Patient is on Coumadin. She is on Coumadin because of history of aortic valve replacement due to having rheumatic fever as a child. He denies previous history of GI bleed except for one time 22 years ago that occurred after delivery of her child. She denies taking any NSAID medications. No other complaints at this time. She is a smoker. She does not drink alcohol. TRAVEL OUTSIDE OF THE [place] IN LAST 30 DAYS: No - Related Data Allergies/Adverse Reactions: codeine [Codeine] Allergy (Mild, Verified 03/06/16 16:53) Nausea "STOMACH BURNING" Past Medical History - Social History Smoking Status: Current Every Day Smoker Frequency of alcohol use: None Drug Abuse: Marijuana Family History: Reviewed & Not Pertinent - Past Medical History Cardiac Medical History: Denies: Hx Coronary Artery Disease, Hx DVT, Hx Heart Attack, Hx Hypercholesterolemia, Hx Hypertension, Hx Pulmonary Embolism Pulmonary Medical History: Denies: Hx Asthma, Hx Bronchitis, Hx COPD, Hx Pneumonia Neurological Medical History: Reports: Hx Cerebrovascular Accident. Denies: Hx Seizures Endocrine Medical History: Denies: Hx Diabetes Mellitus Type 1, Hx Diabetes Mellitus Type 2, Hx Hyperthyroidism, Hx Hypothyroidism Renal/ Medical History: Reports: Hx Kidney Stones GI Medical History: Reports: Hx Gastroesophageal Reflux Disease - History of same; hasn't bothered her recently.. 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 - Immunizations Hx Diphtheria, Pertussis, Tetanus Vaccination: Yes Review of Systems - Review of Systems Notes: My Normal Review Basic REVIEW OF SYSTEMS: CONSTITUTIONAL : Denies fever, chills, or sweats. Denies recent illness. RESPIRATORY: Denies cough, cold, or chest congestion. Denies shortness of breath, difficulty breathing, or wheezing. GASTROINTESTINAL: Mild abdominal pain. Vomiting and dark stools. MUSCULOSKELETAL: Denies neck or back pain or joint pain or swelling. SKIN: Denies rash or skin lesions. HEMATOLOGIC : On Coumadin. NEUROLOGICAL: Denies altered mental status or loss of consciousness. Denies headache. Denies weakness or paralysis or loss of use of either side. Denies problems with gait or speech. Denies sensory or motor loss. ALL OTHER SYSTEMS REVIEWED AND NEGATIVE. Physical Exam - Vital signs Vitals: Resp Pulse Ox 17 100 05/05/17 00:37 05/05/17 00:37 - Notes Notes: General Appearance: Well nourished, alert, cooperative, no acute distress, mild to moderate obvious discomfort. Patient presents with a bag of emesis that she just vomited that she came in to the ER. It is very bloody in appearance and is a large amount. Vitals: reviewed, See vital signs table. Head: no swelling or tenderness to the head Eyes: PERRL, EOMI, Conjuctiva clear Mouth: No decreasd moisture Lungs: No wheezing, No rales, No rhonci, No accessory muscle use, good air exchange bilaterally. Heart: Normal rate, Regular rythm, No murmur, no rub Abdomen: Normal BS, soft, No rigidity, mild reproducible abdominal tenderness palpation., No guarding, no rebound, no abdominal masses, no organomegaly Extremities: strength 5/5 in all extremities, good pulses in all extremities, no swelling or tenderness in the extremities, no edema. Skin: warm, dry, appropriate color, no rash Neuro: speech clear, oriented x 3, normal affect, responds appropriately to questions. Course - Re-evaluation Re-evalutation: 05/05/17 02:08 Patient's hemoglobin is 8.2. Being that she does have active GI bleeding on Coumadin I will give her 1 unit of blood. I will call tertiary facility for possible transfer because we do not have gastroenterology here. 05/05/17 02:33 We do not have gastroenterology here. I called the process control operator and we do not have gastrology coverage throughout the weekend either. I therefore have to transfer. Patient is followed by cardiology at [facility]. I therefore called their first. They are going to contact the hospitalist for me to speak to them about transfer to their facility being that we do not have GI coverage here. 05/05/17 02:[address] Calderon, hospitalist at [facility], who agrees to accept the patient for transfer. Patient currently is vitally stable. Heart rate is 85. Blood pressure is 102/72. She is receiving 1 unit of packed red blood cells. 05/05/17 04:34 She just had another episode of bloody emesis. Emesis is dark in color. We will give patient another dose of Zofran. 05/05/17 04:42 Patient is now feeling better after the Zofran. I did talk to her about potentially placing an NG tube. Patient refuses NG tube. She says she has had them in the past and does not want one. She says if she keeps vomiting blood she will reconsider before right now wants to hold off. 05/05/17 06:52 She continues to say that her nausea is under control. She has not had any further vomiting of blood since the episode of 4:40 AM. She does state that she feels very anxious and nervous. I will give her a little of Ativan. We are still awaiting bed placement at [facility]. - Vital Signs Vital signs: Temp Pulse Resp BP Pulse Ox 98.6 F 95 11 L 114/76 100 05/05/17 05:00 05/05/17 04:40 05/05/17 05:01 05/05/17 05:01 05/05/17 05:01 - Laboratory Result Diagrams: 05/05/17 00:40 05/05/17 00:40 Laboratory results interpreted by me: 05/05/17 05/05/17 05/05/17 00:40 00:40 00:40 RBC 2.70 L Hgb 8.2 L Hct 24.0 L PT 32.9 H Chloride 108 H BUN 35 H Glucose 125 H AST 55 H ALT 107 H Total Protein 5.6 L Albumin 3.2 L Crossmatch 10/14/17 00:40 RBC Hgb Hct PT Chloride BUN Glucose AST ALT Total Protein Albumin Crossmatch See Detail Critical Care Note - Critical Care Note Total time excluding time spent on procedures (mins): 45 Comments: Critical care time for this patient not including time spent on procedures is approximately 45 minutes due to frequent re-evaluations, discussion with setting physician at transferring facility, and management of upper GI bleed with coagulopathy. Discharge - Discharge Clinical Impression: Upper GI bleed, Anticoagulated on Coumadin Condition: Stable Disposition: [facility]
[2017-05-05 00:58] LABS: ABSOLUTE EOSINOPHILS # (AUTO) 0.1 10^3/uL (0.0-0.6); ABSOLUTE MONOCYTES (AUTO) 0.5 10^3/uL (0.1-1.4); ABSOLUTE NEUT (AUTO) 5.8 10^3/uL (1.7-8.2); BASOPHILS % (AUTO) 0.4 % (0-2); EOSINOPHILS % (AUTO) 0.9 % (0-6); HEMOGLOBIN 8.2 g/dL (12.0-15.5); HGB HCT DIFFERENCE 0.6; LYMPHOCYTES % (AUTO) 24.4 % (13-45); MEAN CORPUSCULAR HEMOGLOBIN 30.3 pg (27.0-33.4); MEAN CORPUSCULAR HGB CONC 34.1 g/dL (32.0-36.0); MEAN CORPUSCULAR VOLUME 89 fl (80-97); MONOCYTES % (AUTO) 5.5 % (3-13); RED CELL DISTRIBUTION WIDTH 13.8 % (11.5-14.0); SEGMENTED NEUTROPHILS % (AUTO) 68.8 % (42-78); WHITE BLOOD COUNT 8.4 10^3/uL (4.0-10.5)
[2017-05-05 01:08] LABS: PROTHROMBIN TIME 32.9 SEC (11.4-15.4)
[2017-05-05] MEDS ORDERED: FENTANYL CITRATE INJ/PF 100 MCG/2 ML AMPUL IV ONE ×4 (01:19→06:27)
[2017-05-05 01:27] LABS: ALANINE AMINOTRANSFERASE 107 U/L (9-52); ALBUMIN 3.2 g/dL (3.5-5.0); ALKALINE PHOSPHATASE 82 U/L (38-126); ANION GAP 9 (5-19); ASPARTATE AMINO TRANSFERASE 55 U/L (14-36); BILIRUBIN,DIRECT 0.3 mg/dL (0.0-0.4); BILIRUBIN,TOTAL 0.5 mg/dL (0.2-1.3); BLOOD UREA NITROGEN 35 mg/dL (7-20); CALCIUM 8.5 mg/dL (8.4-10.2); CARBON DIOXIDE 25 mmol/L (22-30); CHLORIDE 108 mmol/L (98-107); GLUCOSE 125 mg/dL (75-110); LIPASE 50.1 U/L (23-300); SODIUM 142.1 mmol/L (137-145); TOTAL PROTEIN 5.6 g/dL (6.3-8.2)
[2017-05-05] MEDS ORDERED: NORMAL SALINE 1000 ML 1,000 ML IV ONE (01:27)
[2017-05-05] MEDS: PANTOPRAZOLE SODIUM 40 MG VIAL IV PRN ×2 (02:00→09:49)
[2017-05-05] MEDS ORDERED: NORMAL SALINE 250 ML IV PRN ×3 (02:08→08:15)
--- NOTE | 2017-05-05 02:41 | RADIOLOGY REPORT (SQ) ---
EXAM DESCRIPTION: ACUTE ABDOMEN SERIES COMPLETED DATE/TIME: 05/05/2017 1:53 am REASON FOR STUDY: abdominal pain COMPARISON: None. NUMBER OF VIEWS: Three views. 4 images. TECHNIQUE: Frontal chest, supine abdomen and upright/decubitus abdomen radiographic images acquired. LIMITATIONS: None. FINDINGS: CHEST: Lungs clear of infiltrates. FREE AIR: None. No abnormal gas collections. BOWEL GAS PATTERN: Nonobstructive pattern. No dilated loops or air fluid levels. CALCIFICATIONS: No suspicious calcifications. HARDWARE: Surgical clips of the right upper abdominal quadrant and mid pelvis -lumbosacral junction. Few bilateral inguinal -region herniorrhaphy clips. SOFT TISSUES: No gross mass or suggestion of organomegaly. BONES: No acute fracture. No worrisome bone lesions. OTHER: No other significant finding. IMPRESSION: NO RADIOGRAPHIC EVIDENCE FOR ACUTE ABDOMINAL DISEASE. TECHNICAL DOCUMENTATION: JOB ID: [id number] [employer]- All Rights Reserved
[2017-05-05] MEDS ORDERED: ONDANSETRON HCL INJ/PF 4 MG/2 ML SDV IV ONE ×5 (04:32→16:20)
[2017-05-05] MEDS ORDERED: LORAZEPAM INJ 2 MG/1 ML VIAL IV ONE ×3 (06:51→13:14)
[2017-05-05 07:56] LABS: EOSINOPHILS % (AUTO) 0.4 % (0-6)
[2017-05-05 08:00] LABS: ABSOLUTE MONOCYTES (AUTO) 0.5 10^3/uL (0.1-1.4); ABSOLUTE NEUT (AUTO) 6.8 10^3/uL (1.7-8.2); BASOPHILS % (AUTO) 0.4 % (0-2); HEMATOCRIT 21.4 % (36.0-47.0); HGB HCT DIFFERENCE 1.4; LYMPHOCYTES % (AUTO) 21.2 % (13-45); MEAN CORPUSCULAR HEMOGLOBIN 31.7 pg (27.0-33.4); MEAN CORPUSCULAR HGB CONC 35.7 g/dL (32.0-36.0); MEAN CORPUSCULAR VOLUME 89 fl (80-97); MONOCYTES % (AUTO) 5.8 % (3-13); RED BLOOD COUNT 2.41 10^6/uL (3.72-5.28); SEGMENTED NEUTROPHILS % (AUTO) 72.2 % (42-78); WHITE BLOOD COUNT 9.4 10^3/uL (4.0-10.5)
[2017-05-05] MEDS ORDERED: MORPHINE SULFATE 10 MG/ML INJ IV ONE ×5 (08:06→16:20)
[2017-05-05 08:07] LABS: HEMOGLOBIN 7.6 g/dL (12.0-15.5)
--- NOTE | 2017-05-05 08:22 | ER Document Report ---
Doctor's Note Notes: 05/05/17 08:19 The nurse told me the patient was threatening to leave because "no one was doing anything for her" and she was in pain. She had been getting pain medication every couple hours. Due to this obviously irrational behavior I looked her up in the [place] controlled substance reporting system and found that she is under chronic pain management receiving 90 Teague 7.5 mg tablets on a monthly basis. She tried to tell me she is not receiving chronic pain management because her primary care provider is prescribing the medication not a pain management doctor. The repeat hemoglobin came back during this time and is 7.6 after she received 1 unit of packed RBCs. Her initial hemoglobin was 8.2 I contacted the lab, they have another unit of blood prepared for her so that will be given at this time. I ordered 2 units of pRBC's to be transfused, and 3 units of fresh frozen plasma due to her INR over 3.0 and now receiving pRBC's. I explained to the patient that she would most likely if she left A at this time. Her boyfriend talked her into staying. 05/05/17 15:16 The patient has received a total of 3 units of packed red cells and 3 units of platelets. Repeat CBC and PT/INR has been ordered. The patient has been requiring narcotic pain medications frequently throughout the day. She will be sound asleep 1 minute and awake threatening to leave and screaming about her pain the next. 05/05/17 16:33 Transport is here for the patient at this time. Her vital signs have remained stable. Her narcotic requirements have been escalating. Repeat hemoglobin after 2 more units of pRBC's is only up to 7.8, her INR is now down to 1.5, she has been maintained on the Protonix drip.
[2017-05-05] MEDS ORDERED: ONDANSETRON 4 MG TAB.RAPDIS PO ONE (13:13)
[2017-05-05 15:30] LABS: ABSOLUTE BASOPHILS # (AUTO) 0.1 10^3/uL (0.0-0.2); ABSOLUTE EOSINOPHILS # (AUTO) 0.1 10^3/uL (0.0-0.6); ABSOLUTE LYMPHOCYTES (AUTO) 2.4 10^3/uL (0.5-4.7); ABSOLUTE MONOCYTES (AUTO) 0.7 10^3/uL (0.1-1.4); ABSOLUTE NEUT (AUTO) 5.3 10^3/uL (1.7-8.2); BASOPHILS % (AUTO) 0.6 % (0-2); HGB HCT DIFFERENCE 1.4; LYMPHOCYTES % (AUTO) 28.3 % (13-45); MEAN CORPUSCULAR HEMOGLOBIN 29.2 pg (27.0-33.4); MEAN CORPUSCULAR HGB CONC 35.6 g/dL (32.0-36.0); MONOCYTES % (AUTO) 7.9 % (3-13); RED BLOOD COUNT 2.69 10^6/uL (3.72-5.28); RED CELL DISTRIBUTION WIDTH 20.8 % (11.5-14.0); SEGMENTED NEUTROPHILS % (AUTO) 62.2 % (42-78); WHITE BLOOD COUNT 8.5 10^3/uL (4.0-10.5)
[2017-05-05 15:34] LABS: HEMOGLOBIN 7.8 g/dL (12.0-15.5); MEAN CORPUSCULAR VOLUME 82 fl (80-97)
[2017-05-05 15:37] LABS: PROTHROMBIN TIME 19.1 SEC (11.4-15.4)
[2017-05-05 16:48] VITALS: BP 128/76
== END 2017-05-05 16:40 | disposition short-term general hospital (02) ==
LOC: ER 00:31
DX: K92.2 Gastrointestinal hemorrhage, unspecified (principal); K92.0 Hematemesis; D68.9 Coagulation defect, unspecified; Z79.01 Long term (current) use of anticoagulants; R10.10 Upper abdominal pain, unspecified; F41.9 Anxiety disorder, unspecified; M54.5 Low back pain; G89.29 Other chronic pain; F11.20 Opioid dependence, uncomplicated; F17.200 Nicotine dependence, unspecified, uncomplicated; Z95.2 Presence of prosthetic heart valve; Z88.5 Allergy status to narcotic agent
CPT/HCPCS: 96376; 99285; 96375; 96365; 96366; 86900; 86901; 36415; 36430; 86850; 83690; 85025; 85610; 80053; 86920; 74022; P9017; P9016; S0119; J3010; J2270; J2060; S0164; J0696; J2405; J7030; J7050

== ENCOUNTER 2018-07-13 10:31 | Inpatient (IN) | payer MEDICAID ==
[2018-07-13] MEDS ORDERED: NORMAL SALINE 1000 ML 1,000 ML IV ONE (10:53)
[2018-07-13] MEDS ORDERED: PIPERACILLIN/TAZOBACTAM 4.5 GM VIAL IV ONE (10:53)
[2018-07-13] MEDS ORDERED: ACETAMINOPHEN 325 MG TABLET PO ONE (10:53)
--- NOTE | 2018-07-13 10:54 | ER Document Report ---
ED General - General Mode of Arrival: Medic Information source: Patient TRAVEL OUTSIDE OF THE [place] IN LAST 30 DAYS: No <RIGOBERTO NEGRO - Last Filed: 07/13/18 13:05> <ANJU SHEEHAN - Last Filed: 07/13/18 19:36> - General Chief Complaint: Fever Stated Complaint: FLU LIKE SYMPTOMS Time Seen by Provider: 07/13/18 10:43 Notes: 42-year-old female who presents to the emergency department today with complaints of a x2-3 day history of nausea and vomiting. Patient states that "her whole house" has the same symptoms as her. According to EMS, the patient had an oxygen saturation of 90% on room air with a temperature of 101.9 on arr ival. Patient states she does not take any medications on a daily basis but then mentions that she takes Coumadin secondary to a CVA in the past. Patient states she has been having sweats and chills and has felt like she had a fever but never took her temperature. Patient denies any numbness, weakness, vision changes, blood in her vomit/diarrhea, being , or any pain. (RIGOBERTO NEGRO) - Related Data Allergies/Adverse Reactions: codeine [Codeine] Allergy (Mild, Verified 07/13/18 11:09) Nausea "STOMACH BURNING" Past Medical History - General Information source: Patient - Social History Smoking Status: Current Every Day Smoker Cigarette use (# per day): Yes Drug Abuse: Marijuana Family History: Reviewed & Not Pertinent Neurological Medical History: Reports: Hx Cerebrovascular Accident Renal/ Medical History: Reports: Hx Kidney Stones GI Medical History: Reports: Hx Gastroesophageal Reflux Disease - History of same; hasn't bothered her recently. Musculoskeletal Medical History: Reports Hx Arthritis - Hips Psychiatric Medical History: Reports: Hx Post Traumatic Stress Disorder Past Surgical History: Reports: Hx Cardiac Surgery - mechanical aortic valve replacement, Hx Section - x2, Hx Orthopedic Surgery - L5 S1 fusion, Hx Tubal Ligation, Other - [facility] AVR, '. - Immunizations Hx Diphtheria, Pertussis, Tetanus Vaccination: Yes <RIGOBERTO NEGRO - Last Filed: 07/13/18 13:05> Review of Systems - Review of Systems Constitutional: See HPI, Chills, Diaphoresis, Fever EENT: denies: Blurred vision, Double vision Cardiovascular: No symptoms reported Respiratory: No symptoms reported Gastrointestinal: See HPI, Diarrhea, Nausea, Vomiting. denies: Blood in vomit Genitourinary: No symptoms reported Female Genitourinary: denies: Musculoskeletal: No symptoms reported Skin: No symptoms reported Hematologic/Lymphatic: No symptoms reported Neurological/Psychological: denies: Weakness, Numbness -: Yes All other systems reviewed and negative <RIGOBERTO NEGRO - Last Filed: 07/13/18 13:05> Physical Exam <RIGOBERTO NEGRO - Last Filed: 07/13/18 13:05> - Vital signs Vitals: Pulse Ox 93 07/13/18 10:38 - Notes Notes: PHYSICAL EXAM GENERAL: Alert, interacts appropriately when asked direct questions but spontaneously begins into garbled and incomprehensible speech, but when redirected with a direct question she is able to answer appropriately. Patient unable to recite the date or year but is able to correctly say that it is Sunday, that our president is Samuel Robertson, and that the holiday coming up is [place]. Patient appears uncomfortable. HEAD: Normocephalic, atraumatic. EYES: Pupils equal, round, and reactive to light. Extraocular movements intact. ENT: Oral mucosa moist, tongue midline. NECK: Full range of motion. Supple. Trachea midline. LUNGS: Trace crackles in the left upper lobe, no wheezes, rales, or rhonchi. Oxygen saturation of 93% on 2L via nasal cannula with a good waveform, hypoxic per my interpretation. HEART: No tachycardia, regular rhythm with occasional ectopy which is consistent with PVCs seen on beside monitor. 2/6 systolic ejection murmur. No gallops or rubs. ABDOMEN: Soft, non-tender. Non-distended. Bowel sounds present in all 4 quadrants. No guarding, rigidity, or rebound. EXTREMITIES: Moves all 4 extremities spontaneously. No edema, radial and dorsal is pedis pulses 2/4 bilaterally. No cyanosis. NEUROLOGICAL: Interacts appropriately when asked direct questions but spontaneously begins into garbled and incomprehensible speech, but when redirected with a direct question she is able to answer appropriately. Patient unable to recite the date or but is able to correctly say that it is Sunday, that our president is Samuel Robertson, and that the holiday coming up is [place]. PSYCH: Normal affect, normal mood. SKIN: Hot to the touch, mildly diaphoretic, normal turgor. No rashes or lesions noted. (RIGOBERTO NEGRO) Course - Laboratory Result Diagrams: 07/13/18 11:15 07/13/18 11:15 <RIGOBERTO NEGRO - Last Filed: 07/13/18 13:05> - Laboratory Result Diagrams: 07/13/18 11:15 07/13/18 11:15 <ANJU SHEEHAN - Last Filed: 07/13/18 19:36> - Re-evaluation Re-evalutation: 07/13/18 17:09 When patient arrived she was hypoxic and placed on oxygen, she responded well to this, patient was in moderate respiratory distress, her speech was clear when answering questions but became somewhat garbled when she was just speaking spontaneously. Given her history of stroke I did have the nurse perform an NIH stroke scale, she had a 3 however she does not have constant aphasia or slurred speech it is intermittent. At this time I do not feel the patient is having a stroke I feel these are mental status changes related to sepsis instead given their waxing and waning presence. CT scan of the head was negative. CBC is leukocytosis at 13.4, she is anemic with hemoglobin 11.5, platelets low at 144, her INR is subtherapeutic at 1.81, normally she should be between 2.5 and 3.5 but she has been vomiting and unable to keep this down for the past several days, venous blood gas grossly unremarkable, chemistries show low potass ium at 2.4, low magnesium at 1.3, both of these have been repleted, AST, ALT and alkaline phosphatase are all elevated, but it I discussed this patient with Dr. Laguna fresh him based off of his suggestion we did send for a urinary Legionella antigen, urinalysis shows moderate blood but no signs of infection, chest x-ray shows bilateral pneumonitis, CTA of the chest looking for pulmonary embolism that would have caused her troponin leak of 0.103 did not show PE but it did show extensive bilateral heterogeneous and centrilobular groundglass and nodular pulmonary opacities most conspicuous in the dependent left base, this did not show pulmonary embolism. Patient was started on Zosyn for this i nfection. Patient was reevaluated and she is now much more awake, does not have any slurred speech, no respiratory distress, she is stable on 3 L via nasal cannula, we did have to adjust her rate of infusion of the potassium given the pain she was having with it going into her arm. Patient is now complaining of some abdominal pain as well, abdomen has mild diffuse tenderness to palpation but she is not peritoneal, continues to be regular rate and rhythm, lungs continue to not have any wheezing, capillary refill is 3 seconds. (ANJU SHEEHAN) - Vital Signs Vital signs: Temp Pulse Resp BP Pulse Ox 99 F 91 16 109/71 92 07/13/18 18:18 07/13/18 18:18 07/13/18 18:18 07/13/18 18:18 07/13/18 18:18 - Laboratory Laboratory results interpreted by me: 07/13/18 07/13/18 07/13/18 11:15 11:15 11:15 WBC 13.4 H Hgb 11.5 L Hct 33.9 L RDW 15.9 H Plt Count 144 L Seg Neutrophils % 88.7 H Lymphocytes % 6.2 L Absolute Neutrophils 11.9 H PT 21.9 H APTT 70.4 H VBG pH Sodium 135.3 L Potassium 2.4 L* Chloride 97 L Glucose 154 H Calcium 8.0 L Magnesium AST 57 H ALT 86 H Alkaline Phosphatase 225 H Creatine Kinase 735 H Total Protein 6.2 L Albumin 3.4 L Urine Protein Urine Ketones Urine Blood 07/13/18 07/13/18 07/13/18 11:15 11:15 11:35 WBC Hgb Hct RDW Plt Count Seg Neutrophils % Lymphocytes % Absolute Neutrophils PT APTT VBG pH 7.46 H Sodium Potassium Chloride Glucose Calcium Magnesium 1.3 L AST ALT Alkaline Phosphatase Creatine Kinase Total Protein Albumin Urine Protein 100 H Urine Ketones 20 H Urine Blood MODERATE H - EKG Interpretation by Me Additional EKG results interpreted by me: 07/13/18 17:10 EKG shows sinus tachycardia with ventricular trigeminy, no ST segment elevations, mild ST segment depressions in V3 and V4, T wave inversions from V2 through V5, normal R wave progression, normal axis per my interpretation. (ANJU SHEEHAN) Critical Care Note - Critical Care Note Total time excluding time spent on procedures (mins): 55 <ANJU SHEEHAN - Last Filed: 07/13/18 19:36> Discharge <RIGOBERTO NEGRO - Last Filed: 07/13/18 13:05> - Discharge Admitting Provider: Hospitalist - [facility] Admitted: [facility] <ANJU SHEEHAN - Last Filed: 07/13/18 19:36> - Discharge Clinical Impression: Multifocal pneumonia, Hypokalemia, Subtherapeutic international normalized ratio (INR) Sepsis Qualifiers: Sepsis type: sepsis due to unspecified organism Qualified Code(s): A41.9 - Sepsis, unspecified organism Condition: Serious Disposition: ADMITTED INPATIENT Scribe Attestation: 07/13/18 19:36 I personally performed the services described in the documentation, reviewed and edited the documentation which was dictated to the scribe in my presence, and it accurately records my words and actions. (ANJU SHEEHAN) Scribe Documentation - Scribe Written by Scribe:: Rizwan Negron, 07/13/2018 1332 acting as scribe for :: Deena <RIGOBERTO NEGRO - Last Filed: 07/13/18 13:05>
[2018-07-13] MEDS ORDERED: ONDANSETRON HCL INJ/PF 4 MG/2 ML SDV IV ONE (11:03)
--- NOTE | 2018-07-13 11:21 | RADIOLOGY REPORT (SQ) ---
EXAM DESCRIPTION: CHEST SINGLE VIEW COMPLETED DATE/TIME: 07/13/2018 11:13 am REASON FOR STUDY: cough, fever, SOB COMPARISON: 06/24/2016 EXAM PARAMETERS: NUMBER OF VIEWS: One view. TECHNIQUE: Single frontal radiographic view of the chest acquired. RADIATION DOSE: NA LIMITATIONS: None. FINDINGS: LUNGS AND PLEURA: Parenchymal opacities in the mid zones bilateral. No effusions. MEDIASTINUM AND HILAR STRUCTURES: No masses. Contour normal. HEART AND VASCULAR STRUCTURES: Heart normal in size. Normal vasculature. BONES: No acute findings. HARDWARE: Sternal wires. OTHER: No other significant finding. IMPRESSION: Bilateral pneumonitis. TECHNICAL DOCUMENTATION: JOB ID: [id number] [employer]- All Rights Reserved Reading location - IP/workstation name: [email or web address]
--- NOTE | 2018-07-13 11:35 | EKG REPORT ---
SEVERITY:- ABNORMAL ECG - SINUS TACHYCARDIA VENTRICULAR TRIGEMINY NONSPECIFIC INTRAVENTRICULAR CONDUCTION DELAY BORDERLINE ST DEPRESSION, ANTEROLATERAL LEADS : Confirmed by: Barry Mccarthy MD 13-Jul-2018 11:34:56
[2018-07-13 11:37] LABS: VENOUS BLOOD BASE EXCESS 4.5 mmol/L; VENOUS BLOOD HCO3 28.6 mmol/L (20-32); VENOUS BLOOD PCO2 40.9 mmHg (35-63); VENOUS BLOOD PH 7.46 (7.30-7.42)
[2018-07-13 11:40] LABS: INTERNATIONAL RATION (INR) 1.81; PROTHROMBIN TIME 21.9 SEC (11.4-15.4)
[2018-07-13 11:41] LABS: ABSOLUTE LYMPHOCYTES (AUTO) 0.8 10^3/uL (0.5-4.7); ABSOLUTE MONOCYTES (AUTO) 0.7 10^3/uL (0.1-1.4); ABSOLUTE NEUT (AUTO) 11.9 10^3/uL (1.7-8.2); BASOPHILS % (AUTO) 0.1 % (0-2); HEMATOCRIT 33.9 % (36.0-47.0); HEMOGLOBIN 11.5 g/dL (12.0-15.5); LYMPHOCYTES % (AUTO) 6.2 % (13-45); MEAN CORPUSCULAR HEMOGLOBIN 29.7 pg (27.0-33.4); MEAN CORPUSCULAR HGB CONC 33.9 g/dL (32.0-36.0); MEAN CORPUSCULAR VOLUME 88 fl (80-97); PLATELET COUNT 144 10^3/uL (150-450); RED BLOOD COUNT 3.87 10^6/uL (3.72-5.28); RED CELL DISTRIBUTION WIDTH 15.9 % (11.5-14.0); SEGMENTED NEUTROPHILS % (AUTO) 88.7 % (42-78); TOTAL CELLS COUNTED % (AUTO) 100 %; WHITE BLOOD COUNT 13.4 10^3/uL (4.0-10.5)
[2018-07-13 11:42] LABS: PARTIAL THROMBOPLASTIN TIME 70.4 SEC (23.5-35.8)
[2018-07-13 11:50] LABS: ALANINE AMINOTRANSFERASE 86 U/L (9-52); ALBUMIN 3.4 g/dL (3.5-5.0); ALKALINE PHOSPHATASE 225 U/L (38-126); ANION GAP 10 (5-19); ASPARTATE AMINO TRANSFERASE 57 U/L (14-36); BILIRUBIN,DIRECT 0.3 mg/dL (0.0-0.4); BILIRUBIN,TOTAL 0.4 mg/dL (0.2-1.3); BLOOD UREA NITROGEN 10 mg/dL (7-20); CARBON DIOXIDE 28 mmol/L (22-30); CHLORIDE 97 mmol/L (98-107); CREATINE KINASE 735 U/L (30-135); GLUCOSE 154 mg/dL (75-110); SODIUM 135.3 mmol/L (137-145); TOTAL PROTEIN 6.2 g/dL (6.3-8.2)
[2018-07-13 11:53] LABS: POTASSIUM 2.4 mmol/L (3.6-5.0)
[2018-07-13 11:58] LABS: APPEARANCE,URINE SLIGHTLY-CLOUDY; BILIRUBIN,URINE NEGATIVE (NEGATIVE); COLOR,URINE AMBER; GLUCOSE, URINE NEGATIVE (NEGATIVE); KETONES,URINE 20 mg/dL (NEGATIVE); LEUKOCYTE ESTERASE,URINE NEGATIVE (NEGATIVE); NITRITE,URINE NEGATIVE (NEGATIVE); PROTEIN,URINE 100 mg/dL (NEGATIVE); URINE SPECIFIC GRAVITY 1.023; UROBILINOGEN,URINE NEGATIVE mg/dL (<2.0)
[2018-07-13 12:01] LABS: CREATINE KINASE MB 1.04 ng/mL (<4.55)
[2018-07-13 12:05] LABS: TROPONIN I 0.103 ng/mL
[2018-07-13] MEDS ORDERED: RINGERS SOLUTION,LACTATED 1,000 ML IV ONE (12:18)
--- NOTE | 2018-07-13 12:30 | RADIOLOGY REPORT (SQ) ---
EXAM DESCRIPTION: CT HEAD WITHOUT COMPLETED DATE/TIME: 07/13/2018 11:11 am REASON FOR STUDY: occasional aphasia COMPARISON: CT of head 01/15/2008. MRI head 01/21/2008. TECHNIQUE: Axial images acquired through the brain without intravenous contrast. Images reviewed wi th bone, brain and subdural windows. Images stored on PACS. All CT scanners at this facility use dose modulation, iterative reconstruction, and/or weight based d osing when appropriate to reduce radiation dose to as low as reasonably achievable (ALARA). [facility]: Dose Right [facility]: CareDose [facility]: Dose Right [facility]: Teradose 4D [facility]: Smart [employer] RADIATION DOSE: CT Rad equipment meets quality standard of care and radiation dose reduction techniq ues were employed. CTDIvol: 53.2 - 55.2 mGy. DLP: 2128 mGy-cm. mGy. LIMITATIONS: Significant image degradation secondary to patient motion artifact. FINDINGS: VENTRICLES: Normal size and contour. CEREBRUM: No masses. No hemorrhage. No midline shift. No evidence for acute infarction. Normal gra y/white matter differentiation. No areas of low density in the white matter. CEREBELLUM: No masses. No hemorrhage. No alteration of density. No evidence for acute infarction. EXTRAAXIAL SPACES: No fluid collections. No masses. ORBITS AND GLOBE: No intra- or extraconal masses. Normal contour of globe without masses. CALVARIUM: No fracture. PARANASAL SINUSES: No fluid or mucosal thickening. SOFT TISSUES: No mass or hematoma. OTHER: No other significant finding. IMPRESSION: NORMAL BRAIN CT WITHOUT CONTRAST. EVIDENCE OF ACUTE STROKE: NO. COMMENT: Quality ID # [id number]: Final reports with documentation of one or more dose reduction techniques (e.g., Automated exposure control, adjustment of the mA and/or kV according to patient size, use of iterative reconstruction technique) TECHNICAL DOCUMENTATION: JOB ID: [id number] 2010 [employer]- All Rights Reserved Reading location - IP/workstation name: [email or web address]
[2018-07-13] MEDS: POTASSI CL 20 MEQ/50 ML RIDER 20 MEQ/50 ML RTUPB IV SCH ×5 (12:53→23:27)
[2018-07-13] MEDS: MAGNESIUM SULFATE/D5W 1 GM/100 ML RTUPB IV SCH ×4 (14:11→21:40)
--- NOTE | 2018-07-13 15:04 | RADIOLOGY REPORT (SQ) ---
EXAM DESCRIPTION: CTA CHEST COMPLETED DATE/TIME: 07/13/2018 2:50 pm REASON FOR STUDY: hypoxia, troponin leak COMPARISON: Same day chest radiograph TECHNIQUE: CT scan of the chest performed using helical scanning technique with dynamic intravenous contrast injection. Images reviewed with lung, soft tissue and bone windows. Reconstructed coronal and sagittal MPR images reviewed. Additional 3 dimensional post-processing performed to develop Maximal Intensity Projection images (NM P). All images stored on PACS. All CT scanners at this facility use dose modulation, iterative reconstruction, and/or weight based d osing when appropriate to reduce radiation dose to as low as reasonably achievable (ALARA). [facility]: Dose Right [facility]: CareDose [facility]: Dose Right [facility]: Teradose 4D [facility]: [employer] CONTRAST TYPE AND DOSE: contrast/concentration: Isovue 350.00 mg/ml; Total Contrast Delivered: 73.0 ml; Total Saline Delivered: 75.4 ml Contrast bolus optimized for the pulmonary arteries. Not diagnostic for the aorta. RENAL FUNCTION: None required. The patient is less than 50 years old. RADIATION DOSE: CT Rad equipment meets quality standard of care and radiation dose reduction techniq ues were employed. CTDIvol: 14.3 - 16.5 mGy. DLP: 516 mGy-cm. . LIMITATIONS: None. FINDINGS: LUNGS AND PLEURA: There is extensive bilateral heterogeneous and centrilobular ground-glas s nodular pulmonary opacity, most conspicuous in the dependent left lung base. AORTA AND GREAT VESSELS: No aneurysm. Contrast bolus not optimized for the aorta. HEART: No pericardial effusion. No significant coronary artery calcifications. PULMONARY ARTERIES: Evaluation for pulmonary embolism is somewhat limited by breath motion artifact. Within this limitation, no evidence of pulmonary embolism through the segmental pulmonary arteries. HILAR AND MEDIASTINAL STRUCTURES: Moderate hiatal hernia. HARDWARE: None in the chest. UPPER ABDOMEN: No significant findings. Limited exam. THYROID AND OTHER SOFT TISSUES: No masses. No adenopathy. BONES: No acute or significant finding. 3D MIPS: Confirm above findings. OTHER: No other significant finding. IMPRESSION: 1. Examination for pulmonary embolism is somewhat limited by breath motion artifact. W ithin this limitation, no evidence of pulmonary embolism through the segmental pulmonary arteries. 2. There is extensive bilateral heterogeneous and centrilobular ground-glass nodular pulmonary opaci ty, most conspicuous in the dependent lung bases. Findings are consistent with multifocal infection, possibly related to aspiration given the presence of a hiatal hernia and dependent distribution. 3. Moderate hiatal hernia. COMMENT: Quality ID # [id number]: Final reports with documentation of one or more dose reduction techniques (e.g., Automated exposure control, adjustment of the mA and/or kV according to patient size, use of iterative reconstruction technique) TECHNICAL DOCUMENTATION: JOB ID: [id number] [employer]- All Rights Reserved Reading location - IP/workstation name: [email or web address]
[2018-07-13] MEDS ORDERED: LIDOCAINE 1% INJ-PF (10 MG/ML) 30 ML SDV ONE (15:34)
[2018-07-13] MEDS ORDERED: HYDROMORPHONE HCL INJ/PF 2 MG/ML AMPULE ONE (15:49)
[2018-07-13] MEDS ORDERED: HYDROMORPHONE HCL INJ/PF 2 MG/ML AMPULE IV ONE ×2 (15:53→16:23)
[2018-07-13] MEDS ORDERED: GUAIFENESIN SYRP 200 MG/10 ML UDC PO PRN (16:57)
[2018-07-13] MEDS: LEVOFLOXACIN 750 MG/D5W RTU 750 MG/150 ML RTUPB IV SCH (17:21)
--- NOTE | 2018-07-13 17:28 | PDOC H&P ---
History of Present Illness History of Present Illness: AIYANA HARTMAN is a very pleasant but unfortunate 42 year old female with history of stroke and the first stroke happened while she was 20 years old, presented with chief complaint of nausea vomiting and diarrhea of 3 days duration. Patient has also associated fever, cough and palpitation and diaphoresis. According to EMS the patient had an oxygen saturation of 90% on room air with a temperature of 101.9 on arrival. No urinary complaints. No headache dizziness or blurring of vision or any seizure activity. Note patient states that "her whole house" has the same symptoms as her. Past Medical History Cardiac Medical History: Denies: Coronary Artery Disease, DVT, Myocardial Infarction, Hyperlipidema, Hypertension, Pulmonary Embolism Pulmonary Medical History: Denies: Asthma, Bronchitis, Chronic Obstructive Pulmonary Disease (COPD), Pneumonia Neurological Medical History: Denies: Seizures Endocrine Medical History: Denies: Diabetes Mellitus Type 1, Diabetes Mellitus Type 2, Hyperthyroidism, Hypothyroidism GI Medical History: Reports: Gastroesophageal Reflux Disease - History of same; hasn't bothered her recently. Denies: Cirrhosis, Hepatitis Musculoskeltal Medical History: Reports: Arthritis - Hips Skin Medical History: Denies: Eczema, Psoriasis Psychiatric Medical History: Reports: Post Traumatic Stress Disorder Denies: Depression Hematology: Reports: Anemia Past Surgical History Past Surgical History: Reports: Section - x2, Orthopedic Surgery - L5 S1 fusion, Tubal Ligation, Other - [facility] AVR, . Social History Smoking Status: Current Every Day Smoker Frequency of Alcohol Use: None Hx Recreational Drug Use: Yes Drugs: Marijuana Hx Prescription Drug Abuse: No - Advance Directive Resuscitation Status: Full Code Family History Family History: Reviewed & Not Pertinent, CVA Parental Family History Reviewed: Yes Children Family History Reviewed: Yes Sibling(s) Family History Reviewed.: Yes Medication/Allergy Home Medications: Warfarin Sodium [Coumadin 5 mg Tablet] 5 mg PO QHS 11/05/13 Cyclobenzaprine HCl [Flexeril 10 mg Tablet] 10 mg PO TID #20 tablet 06/28/14 Gabapentin [Neurontin 300 mg Capsule] 300 mg PO QAM 06/28/14 Hydrocodone/Acetaminophen [Vicodin Es 7.5-300 mg Tablet] 1 tab PO BID 07/22/16 Metoprolol Tartrate 25 mg PO QHS 07/22/16 Zolpidem Tartrate [Ambien 5 mg Tablet] 5 mg PO QHS 07/22/16 Gabapentin [Neurontin] 600 mg PO QHS 07/23/16 Azithromycin [Zithromax Tri-Joselito] 500 mg PO DAILY #1 pkg 07/24/16 Cefuroxime Axetil [Ceftin 500 mg Tablet] 1 tab PO BID #16 tablet 07/24/16 Enoxaparin Sodium [Lovenox Inj 80 mg/0.8 ml Disp.syrin] 75 mg SUBCUT Q12 #4 disp.syrin 07/24/16 Allergies/Adverse Reactions: codeine [Codeine] Allergy (Mild, Verified 07/13/18 11:09) Nausea "STOMACH BURNING" Review of Systems Constitutional: PRESENT: as per HPI, chills, fever(s) Ears: PRESENT: as per HPI Nose, Mouth, and Throat: PRESENT: as per HPI Cardiovascular: PRESENT: as per HPI Respiratory: PRESENT: as per HPI Gastrointestinal: PRESENT: as per HPI Musculoskeletal: PRESENT: as per HPI Neurological: PRESENT: as per HPI Physical Exam Vital Signs: Temp Pulse Resp BP Pulse Ox 99.2 F 87 21 H 112/77 97 07/13/18 11:42 07/13/18 11:15 07/13/18 17:01 07/13/18 17:00 07/13/18 17:01 Intake & Output 07/12/18 07/13/18 07/14/18 06:59 06:59 06:59 Intake Total 2250 Output Total 400 Balance 1850 Weight 77.111 kg General appearance: PRESENT: mild distress Head exam: PRESENT: atraumatic Eye exam: PRESENT: conjunctiva pink Mouth exam: PRESENT: moist Teeth exam: PRESENT: dental caries Neck exam: ABSENT: carotid bruit, JVD, lymphadenopathy, thyromegaly Respiratory exam: PRESENT: crackles - Bibasilar crackles GI/Abdominal exam: PRESENT: normal bowel sounds, soft. ABSENT: distended, guarding, mass, organolmegaly, rebound, tenderness Neurological exam: PRESENT: alert, awake, oriented to time, oriented to situation Psychiatric exam: PRESENT: depressed Results Laboratory Results: 07/13/18 11:15 07/13/18 11:15 07/13/18 07/13/18 07/13/18 11:15 11:15 11:15 WBC 13.4 H RBC 3.87 Hgb 11.5 L Hct 33.9 L MCV 88 MCH 29.7 MCHC 33.9 RDW 15.9 H Plt Count 144 L Seg Neutrophils % 88.7 H Lymphocytes % 6.2 L Monocytes % 5.0 Eosinophils % 0.0 Basophils % 0.1 Absolute Neutrophils 11.9 H Absolute Lymphocytes 0.8 Absolute Monocytes 0.7 Absolute Eosinophils 0.0 Absolute Basophils 0.0 VBG pH VBG pCO2 VBG HCO3 VBG Base Excess Sodium 135.3 L Potassium 2.4 L* Chloride 97 L Carbon Dioxide 28 Anion Gap 10 BUN 10 Creatinine 0.55 Est GFR ( Amer) > 60 Est GFR (Non-Af Amer) > 60 Glucose 154 H Lactic Acid 1.5 Calcium 8.0 L Magnesium Total Bilirubin 0.4 AST 57 H ALT 86 H Alkaline Phosphatase 225 H Total Protein 6.2 L Albumin 3.4 L Urine Color Urine Appearance Urine pH Ur Specific Manti Urine Protein Urine Glucose (UA) Urine Ketones Urine Blood Urine Nitrite Ur Leukocyte Esterase Urine WBC (Auto) Urine RBC (Auto) 07/13/18 07/13/18 07/13/18 11:15 11:15 11:35 WBC RBC Hgb Hct MCV MCH MCHC RDW Plt Count Seg Neutrophils % Lymphocytes % Monocytes % Eosinophils % Basophils % Absolute Neutrophils Absolute Lymphocytes Absolute Monocytes Absolute Eosinophils Absolute Basophils VBG pH 7.46 H VBG pCO2 40.9 VBG HCO3 28.6 VBG Base Excess 4.5 Sodium Potassium Chloride Carbon Dioxide Anion Gap BUN Creatinine Est GFR ( Amer) Est GFR (Non-Af Amer) Glucose Lactic Acid Calcium Magnesium 1.3 L Total Bilirubin AST ALT Alkaline Phosphatase Total Protein Albumin Urine Color KLARISSA Urine Appearance SLIGHTLY-CLOUDY Urine pH 5.0 Ur Specific Manti 1.023 Urine Protein 100 H Urine Glucose (UA) NEGATIVE Urine Ketones 20 H Urine Blood MODERATE H Urine Nitrite NEGATIVE Ur Leukocyte Esterase NEGATIVE Urine WBC (Auto) 3 Urine RBC (Auto) 1 07/13/18 07/13/18 11:15 11:15 Creatine Kinase 735 H CK-MB (CK-2) 1.04 Troponin I 0.103 Impressions: Chest X-Ray 07/13/18 10:53 IMPRESSION: Bilateral pneumonitis. Head CT 07/13/18 10:53 IMPRESSION: NORMAL BRAIN CT WITHOUT CONTRAST. EVIDENCE OF ACUTE STROKE: NO. Chest/Abdomen CTA 07/13/18 14:10 IMPRESSION: 1. Examination for pulmonary embolism is somewhat limited by breath motion artifact. Within this limitation, no evidence of pulmonary embolism through the segmental pulmonary arteries. 2. There is extensive bilateral heterogeneous and centrilobular ground-glass nodular pulmonary opacity, most conspicuous in the dependent lung bases. Findings are consistent with multifocal infection, possibly related to aspiration given the presence of a hiatal hernia and dependent distribution. 3. Moderate hiatal hernia. Assessment & Plan - Diagnosis (1) Bilateral pneumonia Is this a current diagnosis for this admission?: Yes Plan: In the face of bilateral pneumonia, similar illness in the family, elevated liver chemistries the possibility of legionnaire's disease possible. Urine for Legionella antigen requested. Patient has been started on Levaquin. (2) Hypokalemia Is this a current diagnosis for this admission?: Yes Plan: Repleted (3) Hypomagnesemia Is this a current diagnosis for this admission?: Yes Plan: Replaced (4) Elevated liver chemistry Is this a current diagnosis for this admission?: Yes Plan: May be related to her pneumonia. (5) History of stroke Is this a current diagnosis for this admission?: Yes Plan: Continue her Coumadin (6) Subtherapeutic international normalized ratio (INR) Is this a current diagnosis for this admission?: Yes Plan: Check her INR in a.m.
[2018-07-13] MEDS ORDERED: ENOXAPARIN SODIUM INJ 40 MG/0.4 ML DISP.SYRIN SUBCUT SCH (18:00)
[2018-07-13] MEDS ORDERED: FAMOTIDINE INJ/PF 20 MG/2 ML SDV IV ONE (19:43)
[2018-07-13] MEDS: ASPIRIN 81 MG TABLET, CHEWABLE PO ONE ×2 (19:58→23:07)
[2018-07-13 20:23] LABS: ANION GAP 6 (5-19); BLOOD UREA NITROGEN 7 mg/dL (7-20); CALCIUM 7.8 mg/dL (8.4-10.2); CARBON DIOXIDE 29 mmol/L (22-30); CHLORIDE 104 mmol/L (98-107); CREATINE KINASE 957 U/L (30-135); GLUCOSE 104 mg/dL (75-110); POTASSIUM 3.3 mmol/L (3.6-5.0); SODIUM 138.8 mmol/L (137-145)
[2018-07-13] MEDS ORDERED: ASPIRIN 81 MG TABLET, CHEWABLE ONE (20:25)
[2018-07-13 20:26] LABS: CREATINE KINASE MB 2.31 ng/mL (<4.55); TROPONIN I 0.075 ng/mL
[2018-07-13] MEDS: HYDROMORPHONE HCL INJ/PF 2 MG/ML AMPULE SUBCUT PRN (20:32)
[2018-07-13] MEDS: MORPHINE SULFATE 10 MG/ML INJ IV PRN ×2 (20:38→23:25)
[2018-07-13 20:41] LABS: URINE AMPHETAMINES SCREEN NEGATIVE; URINE BARBITURATES SCREEN NEGATIVE; URINE BENZODIAZEPINES SCREEN NEGATIVE; URINE COCAINE SCREEN NEGATIVE; URINE METHADONE SCREEN NEGATIVE; URINE PHENCYCLIDINE SCREEN NEGATIVE
[2018-07-13 20:44] LABS: URINE MARIJUANA (THC) SCREEN UNCONFIRMED POSITIVE
[2018-07-13] MEDS: WARFARIN SODIUM 5 MG TABLET PO SCH (23:10)
[2018-07-13] MEDS: ZOLPIDEM TARTRATE 5 MG TABLET PO SCH (23:19)
[2018-07-14] MEDS: POTASSI CL 20 MEQ/50 ML RIDER 20 MEQ/50 ML RTUPB IV SCH (01:43)
[2018-07-14] MEDS: HYDROMORPHONE HCL INJ/PF 2 MG/ML AMPULE SUBCUT PRN (02:07)
[2018-07-14 02:39] LABS: CREATINE KINASE MB 2.7 ng/mL (<4.55); TROPONIN I 0.06 ng/mL
[2018-07-14] MEDS: MORPHINE SULFATE 10 MG/ML INJ IV PRN ×3 (04:05→18:35)
[2018-07-14] MEDS: ONDANSETRON HCL INJ/PF 4 MG/2 ML SDV IV PRN (07:35)
--- NOTE | 2018-07-14 07:39 | EKG REPORT ---
SEVERITY:- ABNORMAL ECG - SINUS RHYTHM NONSPECIFIC INTRAVENTRICULAR CONDUCTION DELAY NONSPECIFIC ST-T CHANGES ANTERIOR LEADS : Confirmed by: Barry Mccarthy MD 14-Jul-2018 07:38:38
[2018-07-14 08:12] LABS: ABSOLUTE MONOCYTES (AUTO) 0.2 10^3/uL (0.1-1.4); BASOPHILS % (AUTO) 0.2 % (0-2); HEMATOCRIT 31.4 % (36.0-47.0); HEMOGLOBIN 10.7 g/dL (12.0-15.5); LYMPHOCYTES % (AUTO) 12.6 % (13-45); MEAN CORPUSCULAR HEMOGLOBIN 29.8 pg (27.0-33.4); MEAN CORPUSCULAR VOLUME 88 fl (80-97); PLATELET COUNT 133 10^3/uL (150-450); RED BLOOD COUNT 3.58 10^6/uL (3.72-5.28); SEGMENTED NEUTROPHILS % (AUTO) 84.2 % (42-78); TOTAL CELLS COUNTED % (AUTO) 100 %; WHITE BLOOD COUNT 8.3 10^3/uL (4.0-10.5)
[2018-07-14 08:19] LABS: INTERNATIONAL RATION (INR) 2.47; PROTHROMBIN TIME 27.9 SEC (11.4-15.4)
[2018-07-14] MEDS ORDERED: (PENDING PHARMACY ID) (Ondansetron [Ondansetron Odt] 8 MG) PO PRN (08:44)
[2018-07-14 08:57] LABS: ALANINE AMINOTRANSFERASE 65 U/L (9-52); ALBUMIN 2.7 g/dL (3.5-5.0); ALKALINE PHOSPHATASE 174 U/L (38-126); ASPARTATE AMINO TRANSFERASE 49 U/L (14-36); BILIRUBIN,DIRECT 0.2 mg/dL (0.0-0.4); BILIRUBIN,TOTAL 0.3 mg/dL (0.2-1.3); BLOOD UREA NITROGEN 5 mg/dL (7-20); CALCIUM 7.9 mg/dL (8.4-10.2); CHLORIDE 103 mmol/L (98-107); CREATINE KINASE 1067 U/L (30-135); GLUCOSE 102 mg/dL (75-110); TOTAL PROTEIN 5.4 g/dL (6.3-8.2)
[2018-07-14 09:02] LABS: ANION GAP 6 (5-19); CARBON DIOXIDE 30 mmol/L (22-30); SODIUM 138.5 mmol/L (137-145)
[2018-07-14] MEDS ORDERED: ONDANSETRON 4 MG TAB.RAPDIS PO PRN (09:06)
[2018-07-14 09:08] LABS: CREATINE KINASE MB 2.32 ng/mL (<4.55); TROPONIN I 0.045 ng/mL
[2018-07-14] MEDS ORDERED: ACETAMINOPHEN PO SCH (10:00)
[2018-07-14] MEDS ORDERED: HYDROCODONE/ACETAMINOPHEN 7.5-325 MG TABLET PO SCH (10:00)
[2018-07-14] MEDS ORDERED: HYDROCODONE PO SCH (10:00)
[2018-07-14] MEDS: FAMOTIDINE INJ/PF 20 MG/2 ML SDV IV SCH ×2 (10:06→21:13)
[2018-07-14] MEDS: CETIRIZINE 10 MG TABLET PO SCH (10:06)
[2018-07-14] MEDS: GABAPENTIN 300 MG CAPSULE PO SCH ×2 (10:06→18:36)
[2018-07-14] MEDS: NORMAL SALINE 1000 ML 1,000 ML IV PRN ×2 (10:07→18:38)
[2018-07-14] MEDS: CYCLOBENZAPRINE HCL 10 MG TABLET PO SCH ×3 (10:07→18:36)
[2018-07-14] MEDS: ACETAMINOPHEN 325 MG TABLET PO PRN (13:25)
[2018-07-14] MEDS: METRONIDAZOLE 500 MG/NS RTU 500 MG/100 ML RTUPB IV SCH ×2 (13:25→18:35)
--- NOTE | 2018-07-14 14:55 | PDOC PROGRESS REPORT ---
Subjective Progress Note for:: 07/14/18 Subjective:: This is 42 years old female patient admitted yesterday with chief complaint of fever, nausea, vomiting, diarrhea and abdominal pain of 2-3 days duration. Her chest x-ray is compatible with bilateral pneumonia. Yesterday her blood work shows WBC of 13,000 today it is normalized. She has also mildly elevated liver enzymes which are trending down. Patient is being managed with normal saline for hydration and Levaquin for her pneumonia. Her nausea and v omiting is being treated with Zofran. This morning I seen patient lying in bed and that she complains of abdominal pain nausea vomiting and watery diarrhea and about 10 times this morning. Her stool for C. difficile colitis is negative. I added Flagyl on top of Levaquin. Patient also complaining of insomnia for which I started her on Xanax 2 mg p.o. nightly. Reason For Visit: BILATERAL PNEUMONIA Physical Exam Vital Signs: Temp Pulse Resp BP Pulse Ox 100.8 F H 80 20 97/58 L 96 07/14/18 11:12 07/14/18 11:12 07/14/18 11:12 07/14/18 11:12 07/14/18 12:00 Pulse Oximeter Continuous Start: 07/13/18 16:57 Freq: RTQ4 Status: Active Protocol: Document 07/14/18 12:00 [facility] (Rec: 07/14/18 13:32 [facility] [id number]) Pulse Oximetry Assessment Oxygen Saturation (92-100) 96 Oxygen Delivery Method Room Air Equipment Usage Equipment in Use Continuous SpO2 Machine # [id number] Intake & Output 07/13/18 07/14/18 07/15/18 06:59 06:59 06:59 Intake Total 3570 100 Output Total 1800 400 Balance 1770 -300 Weight 79.1 kg General appearance: PRESENT: mild distress Eye exam: PRESENT: conjunctiva pink Mouth exam: PRESENT: moist Teeth exam: PRESENT: dental caries Respiratory exam: PRESENT: clear to auscultation xena. ABSENT: rales, rhonchi, wheezes Cardiovascular exam: PRESENT: RRR. ABSENT: diastolic murmur, rubs, systolic murmur GI/Abdominal exam: PRESENT: tenderness Extremities exam: PRESENT: full ROM. ABSENT: calf tenderness, clubbing, pedal edema Neurological exam: PRESENT: alert, awake, oriented to time, oriented to situation Results Laboratory Results: 07/14/18 07:55 07/14/18 07:55 07/13/18 07/14/18 07/14/18 19:45 06:25 07:55 WBC RBC Hgb Hct MCV MCH MCHC RDW Plt Count Seg Neutrophils % Lymphocytes % Monocytes % Eosinophils % Basophils % Absolute Neutrophils Absolute Lymphocytes Absolute Monocytes Absolute Eosinophils Absolute Basophils Sodium 138.8 138.5 Potassium 3.3 L 4.0 Chloride 104 103 Carbon Dioxide 29 30 Anion Gap 6 6 BUN 7 5 L Creatinine 0.48 L 0.55 Est GFR ( Amer) > 60 > 60 Est GFR (Non-Af Amer) > 60 > 60 Glucose 104 102 Calcium 7.8 L 7.9 L Total Bilirubin 0.3 AST 49 H ALT 65 H Alkaline Phosphatase 174 H Total Protein 5.4 L Albumin 2.7 L Stool Occult Blood NEGATIVE 07/14/18 07:55 WBC 8.3 RBC 3.58 L Hgb 10.7 L Hct 31.4 L MCV 88 MCH 29.8 MCHC 34.0 RDW 16.0 H Plt Count 133 L Seg Neutrophils % 84.2 H Lymphocytes % 12.6 L Monocytes % 3.0 Eosinophils % 0.0 Basophils % 0.2 Absolute Neutrophils 7.0 Absolute Lymphocytes 1.0 Absolute Monocytes 0.2 Absolute Eosinophils 0.0 Absolute Basophils 0.0 Sodium Potassium Chloride Carbon Dioxide Anion Gap BUN Creatinine Est GFR ( Amer) Est GFR (Non-Af Amer) Glucose Calcium Total Bilirubin AST ALT Alkaline Phosphatase Total Protein Albumin Stool Occult Blood 07/13/18 07/13/18 07/13/18 11:15 11:15 19:45 Creatine Kinase 735 H 957 H CK-MB (CK-2) 1.04 Troponin I 0.103 07/13/18 07/14/18 07/14/18 19:45 02:02 02:02 Creatine Kinase 1042 H CK-MB (CK-2) 2.31 2.70 Troponin I 0.075 0.060 07/14/18 07/14/18 07:55 07:55 Creatine Kinase 1067 H CK-MB (CK-2) 2.32 Troponin I 0.045 Impressions: Chest X-Ray 07/13/18 10:53 IMPRESSION: Bilateral pneumonitis. Head CT 07/13/18 10:53 IMPRESSION: NORMAL BRAIN CT WITHOUT CONTRAST. EVIDENCE OF ACUTE STROKE: NO. Chest/Abdomen CTA 07/13/18 14:10 IMPRESSION: 1. Examination for pulmonary embolism is somewhat limited by breath motion artifact. Within this limitation, no evidence of pulmonary embolism through the segmental pulmonary arteries. 2. There is extensive bilateral heterogeneous and centrilobular ground-glass nodular pulmonary opacity, most conspicuous in the dependent lung bases. Findings are consistent with multifocal infection, possibly related to aspiration given the presence of a hiatal hernia and dependent distribution. 3. Moderate hiatal hernia. Assessment & Plan - Diagnosis (1) Abdominal pain, vomiting, and diarrhea Is this a current diagnosis for this admission?: Yes Plan: Patient has had watery diarrhea. Stool for C. difficile colitis negative. Flagyl is added to Levaquin. (2) Bilateral pneumonia Is this a current diagnosis for this admission?: Yes Plan: In the face of bilateral pneumonia, similar illness in the family, elevated liver chemistries the possibility of legionnaire's disease possible. Urine for Legionella antigen requested. Patient has been started on Levaquin. (3) Hypokalemia Is this a current diagnosis for this admission?: Yes (4) Hypomagnesemia Is this a current diagnosis for this admission?: Yes Plan: corrected (5) Elevated liver chemistry Is this a current diagnosis for this admission?: Yes Plan: Improving (6) History of stroke Is this a current diagnosis for this admission?: Yes (7) Subtherapeutic international normalized ratio (INR) Is this a current diagnosis for this admission?: Yes Plan: Continue Coumadin
[2018-07-14] MEDS: LEVOFLOXACIN 750 MG/D5W RTU 750 MG/150 ML RTUPB IV SCH (18:35)
[2018-07-14] MEDS: ALPRAZOLAM 0.5 MG TABLET PO SCH (21:10)
[2018-07-14] MEDS: WARFARIN SODIUM 5 MG TABLET PO SCH (21:12)
[2018-07-14] MEDS: METOPROLOL TARTRATE 25 MG TABLET PO SCH (21:12)
[2018-07-14] MEDS: ZOLPIDEM TARTRATE 5 MG TABLET PO SCH (23:23)
[2018-07-15] MEDS: METRONIDAZOLE 500 MG/NS RTU 500 MG/100 ML RTUPB IV SCH ×3 (00:28→13:27)
[2018-07-15] MEDS: ACETAMINOPHEN 325 MG TABLET PO PRN (03:28)
[2018-07-15 05:39] LABS: PROTHROMBIN TIME 35.1 SEC (11.4-15.4)
[2018-07-15] MEDS: NORMAL SALINE 1000 ML 1,000 ML IV PRN ×2 (06:40→16:22)
[2018-07-15] MEDS: MORPHINE SULFATE 10 MG/ML INJ IV PRN ×3 (07:21→22:23)
[2018-07-15] MEDS: CETIRIZINE 10 MG TABLET PO SCH (09:04)
[2018-07-15] MEDS: CYCLOBENZAPRINE HCL 10 MG TABLET PO SCH ×3 (09:04→17:15)
[2018-07-15] MEDS: GABAPENTIN 300 MG CAPSULE PO SCH ×2 (09:04→17:15)
[2018-07-15] MEDS: FAMOTIDINE INJ/PF 20 MG/2 ML SDV IV SCH (09:04)
--- NOTE | 2018-07-15 10:53 | PDOC PROGRESS REPORT ---
Subjective Subjective:: I seen patient resting in bed. Today patient's more awake alert conversant and she reports this her nausea vomiting and diarrhea are subsiding her abdominal pain also relatively improved. Patient eats well and she is tolerating. We will continue the same management. Reason For Visit: BILATERAL PNEUMONIA Physical Exam Vital Signs: Temp Pulse Resp BP Pulse Ox 98.5 F 67 21 H 133/71 H 95 07/15/18 07:45 07/15/18 07:45 07/15/18 07:45 07/15/18 07:45 07/15/18 08:00 Pulse Oximeter Continuous Start: 07/13/18 16:57 Freq: RTQ4 Status: Active Protocol: Document 07/15/18 08:00 HCR (Rec: 07/15/18 10:19 HCR [id number]) Pulse Oximetry Assessment Oxygen Saturation (92-100) 95 Oxygen Delivery Method Room Air Fraction of Inspired Oxygen (FIO2) 21 Equipment Usage Equipment in Use Continuous SpO2 Machine # 14 Intake & Output 07/14/18 07/15/18 07/16/18 06:59 06:59 06:59 Intake Total 3570 3180 Output Total 1800 1200 Balance 1770 1980 Weight 79.1 kg 77.7 kg General appearance: PRESENT: no acute distress, well-developed, well-nourished Head exam: PRESENT: atraumatic, normocephalic Eye exam: PRESENT: conjunctiva pink, EOMI, PERRLA. ABSENT: scleral icterus Ear exam: PRESENT: normal external ear exam Mouth exam: PRESENT: moist, tongue midline Neck exam: ABSENT: carotid bruit, JVD, lymphadenopathy, thyromegaly Respiratory exam: PRESENT: clear to auscultation xena. ABSENT: rales, rhonchi, wheezes Cardiovascular exam: PRESENT: RRR. ABSENT: diastolic murmur, rubs, systolic murmur Pulses: PRESENT: normal dorsalis pedis pul Vascular exam: PRESENT: normal capillary refill GI/Abdominal exam: PRESENT: normal bowel sounds, soft, tenderness. ABSENT: distended, guarding, mass, organolmegaly, rebound Rectal exam: PRESENT: deferred Extremities exam: PRESENT: full ROM. ABSENT: calf tenderness, clubbing, pedal edema Neurological exam: PRESENT: alert, awake, oriented to person, oriented to place, oriented to time, oriented to situation, CN II-XII grossly intact. ABSENT: motor sensory deficit Psychiatric exam: PRESENT: appropriate affect, normal mood. ABSENT: homicidal ideation, suicidal ideation Skin exam: PRESENT: dry, intact, warm. ABSENT: cyanosis, rash Results Laboratory Results: 07/14/18 07:55 07/14/18 07:55 07/13/18 07/13/18 07/13/18 11:15 11:15 19:45 Creatine Kinase 735 H 957 H CK-MB (CK-2) 1.04 Troponin I 0.103 07/13/18 07/14/18 07/14/18 19:45 02:02 02:02 Creatine Kinase 1042 H CK-MB (CK-2) 2.31 2.70 Troponin I 0.075 0.060 07/14/18 07/14/18 07:55 07:55 Creatine Kinase 1067 H CK-MB (CK-2) 2.32 Troponin I 0.045 Impressions: Chest X-Ray 07/13/18 10:53 IMPRESSION: Bilateral pneumonitis. Head CT 07/13/18 10:53 IMPRESSION: NORMAL BRAIN CT WITHOUT CONTRAST. EVIDENCE OF ACUTE STROKE: NO. Chest/Abdomen CTA 07/13/18 14:10 IMPRESSION: 1. Examination for pulmonary embolism is somewhat limited by breath motion artifact. Within this limitation, no evidence of pulmonary embolism through the segmental pulmonary arteries. 2. There is extensive bilateral heterogeneous and centrilobular ground-glass nodular pulmonary opacity, most conspicuous in the dependent lung bases. Findings are consistent with multifocal infection, possibly related to aspiration given the presence of a hiatal hernia and dependent distribution. 3. Moderate hiatal hernia. Assessment & Plan - Diagnosis (1) Abdominal pain, vomiting, and diarrhea Is this a current diagnosis for this admission?: Yes Plan: Has been improving (2) Bilateral pneumonia Is this a current diagnosis for this admission?: Yes Plan: Continue current regimen (3) Hypokalemia Is this a current diagnosis for this admission?: Yes Plan: Repleted (4) Hypomagnesemia Is this a current diagnosis for this admission?: Yes Plan: corrected (5) Elevated liver chemistry Is this a current diagnosis for this admission?: Yes Plan: Improving (6) History of stroke Is this a current diagnosis for this admission?: Yes Plan: Continue her Coumadin (7) Subtherapeutic international normalized ratio (INR) Is this a current diagnosis for this admission?: Yes Plan: Continue Coumadin
--- NOTE | 2018-07-15 14:00 | RADIOLOGY REPORT (SQ) ---
EXAM DESCRIPTION: CHEST SINGLE VIEW COMPLETED DATE/TIME: 07/15/2018 1:42 pm REASON FOR STUDY: Bilateral pneumonia COMPARISON: 07/13/2018. EXAM PARAMETERS: NUMBER OF VIEWS: One view. TECHNIQUE: Single frontal radiographic view of the chest acquired. RADIATION DOSE: NA LIMITATIONS: None. FINDINGS: LUNGS AND PLEURA: There are multifocal airspace type infiltrates with increasing infiltrat e noted in the right upper lung field and left mid lung field. Persistent infiltrates in lung bases. MEDIASTINUM AND HILAR STRUCTURES: No masses. Contour normal. HEART AND VASCULAR STRUCTURES: The heart is normal. Pulmonary vasculature unchanged. BONES: No acute findings. HARDWARE: Median sternotomy wires. OTHER: Chest leads in place. IMPRESSION: Bilateral pulmonary airspace type infiltrates consistent with multifocal pneumonia. TECHNICAL DOCUMENTATION: JOB ID: [id number] 2010 [employer]- All Rights Reserved Reading location - IP/workstation name: [email or web address]
[2018-07-15] MEDS: ONDANSETRON HCL INJ/PF 4 MG/2 ML SDV IV PRN (16:22)
[2018-07-15] MEDS: PIPERACILLIN SODIUM/TAZOBACTAM 3.375 GM in NORMAL SALINE 100 ML IV SCH ×2 (17:15→23:52)
[2018-07-15] MEDS: ZOLPIDEM TARTRATE 5 MG TABLET PO SCH (22:17)
[2018-07-15] MEDS: METOPROLOL TARTRATE 25 MG TABLET PO SCH (22:24)
[2018-07-15] MEDS: WARFARIN SODIUM 5 MG TABLET PO SCH (22:24)
[2018-07-15] MEDS: FAMOTIDINE 20 MG TABLET PO SCH (22:24)
[2018-07-15] MEDS: ALPRAZOLAM 0.5 MG TABLET PO SCH (22:24)
[2018-07-16] MEDS: NORMAL SALINE 1000 ML 1,000 ML IV PRN ×2 (03:03→11:32)
[2018-07-16] MEDS: PIPERACILLIN SODIUM/TAZOBACTAM 3.375 GM in NORMAL SALINE 100 ML IV SCH ×4 (05:40→23:28)
[2018-07-16] MEDS: MORPHINE SULFATE 10 MG/ML INJ IV PRN ×4 (05:43→23:18)
[2018-07-16 06:59] LABS: INTERNATIONAL RATION (INR) 6.32
[2018-07-16 07:10] LABS: PROTHROMBIN TIME 58.5 SEC (11.4-15.4)
[2018-07-16 08:50] LABS: APPEARANCE,URINE CLEAR; BILIRUBIN,URINE NEGATIVE (NEGATIVE); COLOR,URINE YELLOW; GLUCOSE, URINE NEGATIVE (NEGATIVE); KETONES,URINE 20 mg/dL (NEGATIVE); LEUKOCYTE ESTERASE,URINE NEGATIVE (NEGATIVE); NITRITE,URINE NEGATIVE (NEGATIVE); PROTEIN,URINE NEGATIVE (NEGATIVE); URINE SPECIFIC GRAVITY 1.012; UROBILINOGEN,URINE NEGATIVE mg/dL (<2.0)
[2018-07-16] MEDS ORDERED: PHYTONADIONE 5 MG TABLET PO ONE (09:30)
[2018-07-16] MEDS: CETIRIZINE 10 MG TABLET PO SCH (09:58)
[2018-07-16] MEDS: CYCLOBENZAPRINE HCL 10 MG TABLET PO SCH ×3 (09:58→17:53)
[2018-07-16] MEDS: GABAPENTIN 300 MG CAPSULE PO SCH ×2 (09:58→17:53)
[2018-07-16] MEDS: FAMOTIDINE 20 MG TABLET PO SCH ×2 (09:58→21:35)
--- NOTE | 2018-07-16 11:26 | PDOC PROGRESS REPORT ---
Subjective Subjective:: This is 42 years old female patient admitted yesterday with chief complaint of fever, nausea, vomiting, diarrhea and abdominal pain of 2-3 days duration. Her chest x-ray is compatible with bilateral pneumonia. Yesterday her blood work shows WBC of 13,000 today it is normalized. She has also mildly elevated liver enzymes which are trending down. Patient is being managed with normal saline for hydration and Levaquin for her pneumonia but I switched her Levaquin to Zosyn since the Levaquin increase her INR level.. Her nausea and vomiting is being treated with Zofran. This morning her labs shows PT 58.5 and INR of 6.32. I hold her Coumadin and she is given 5 mg of vitamin K p.o. and I will check her PT/INR in a.m. I seen patient resting in bed she reports this her belly pain is subsiding and her diarrhea has stopped. Reason For Visit: BILATERAL PNEUMONIA Physical Exam Vital Signs: Temp Pulse Resp BP Pulse Ox 100.1 F 68 18 139/64 H 92 07/16/18 07:59 07/16/18 07:59 07/16/18 07:59 07/16/18 07:59 07/16/18 08:00 Pulse Oximeter Continuous Start: 07/13/18 16:57 Freq: RTQ4 Status: Active Protocol: Document 07/16/18 08:00 HCR (Rec: 07/16/18 08:55 HCR [id number]) Pulse Oximetry Assessment Oxygen Saturation (92-100) 92 Oxygen Delivery Method Room Air Fraction of Inspired Oxygen (FIO2) 21 Equipment Usage Equipment in Use Continuous SpO2 Machine # 14 Intake & Output 07/15/18 07/16/18 07/17/18 06:59 06:59 06:59 Intake Total 3180 2572 100 Output Total 1200 1800 Balance 1980 772 100 Weight 77.7 kg 79.1 kg General appearance: PRESENT: no acute distress, well-developed, well-nourished Head exam: PRESENT: atraumatic, normocephalic Eye exam: PRESENT: conjunctiva pink, EOMI, PERRLA. ABSENT: scleral icterus Ear exam: PRESENT: normal external ear exam Mouth exam: PRESENT: moist, tongue midline Neck exam: ABSENT: carotid bruit, JVD, lymphadenopathy, thyromegaly Respiratory exam: PRESENT: clear to auscultation xena. ABSENT: rales, rhonchi, wheezes Cardiovascular exam: PRESENT: RRR. ABSENT: diastolic murmur, rubs, systolic murmur Pulses: PRESENT: normal dorsalis pedis pul Vascular exam: PRESENT: normal capillary refill GI/Abdominal exam: PRESENT: normal bowel sounds, soft. ABSENT: distended, guarding, mass, organolmegaly, rebound, tenderness Rectal exam: PRESENT: deferred Extremities exam: PRESENT: full ROM. ABSENT: calf tenderness, clubbing, pedal edema Neurological exam: PRESENT: alert, awake, oriented to person, oriented to place, oriented to time, oriented to situation, CN II-XII grossly intact. ABSENT: motor sensory deficit Psychiatric exam: PRESENT: appropriate affect, normal mood. ABSENT: homicidal ideation, suicidal ideation Skin exam: PRESENT: dry, intact, warm. ABSENT: cyanosis, rash Results Laboratory Results: 07/14/18 07:55 07/14/18 07:55 07/16/18 08:25 Urine Color YELLOW Urine Appearance CLEAR Urine pH 6.0 Ur Specific [place] 1.012 Urine Protein NEGATIVE Urine Glucose (UA) NEGATIVE Urine Ketones 20 H Urine Blood NEGATIVE Urine Nitrite NEGATIVE Ur Leukocyte Esterase NEGATIVE Urine WBC (Auto) 1 Urine RBC (Auto) 2 07/13/18 11:35 Catheterized Urine Urine Culture - Final NO GROWTH 2 DAYS 07/13/18 07/13/18 07/13/18 11:15 11:15 19:45 Creatine Kinase 735 H 957 H CK-MB (CK-2) 1.04 Troponin I 0.103 07/13/18 07/14/18 07/14/18 19:45 02:02 02:02 Creatine Kinase 1042 H CK-MB (CK-2) 2.31 2.70 Troponin I 0.075 0.060 07/14/18 07/14/18 07:55 07:55 Creatine Kinase 1067 H CK-MB (CK-2) 2.32 Troponin I 0.045 Impressions: Head CT 07/13/18 10:53 IMPRESSION: NORMAL BRAIN CT WITHOUT CONTRAST. EVIDENCE OF ACUTE STROKE: NO. Chest/Abdomen CTA 07/13/18 14:10 IMPRESSION: 1. Examination for pulmonary embolism is somewhat limited by breath motion artifact. Within this limitation, no evidence of pulmonary embolism through the segmental pulmonary arteries. 2. There is extensive bilateral heterogeneous and centrilobular ground-glass nodular pulmonary opacity, most conspicuous in the dependent lung bases. Findings are consistent with multifocal infection, possibly related to aspiration given the presence of a hiatal hernia and dependent distribution. 3. Moderate hiatal hernia. Chest X-Ray 07/15/18 00:00 IMPRESSION: Bilateral pulmonary airspace type infiltrates consistent with multifocal pneumonia. Assessment & Plan - Diagnosis (1) Abdominal pain, vomiting, and diarrhea Is this a current diagnosis for this admission?: Yes Plan: Has been improving (2) Bilateral pneumonia Is this a current diagnosis for this admission?: Yes Plan: Continue current regimen (3) Hypokalemia Is this a current diagnosis for this admission?: Yes Plan: Repleted (4) Hypomagnesemia Is this a current diagnosis for this admission?: Yes Plan: corrected (5) Elevated liver chemistry Is this a current diagnosis for this admission?: Yes Plan: Improving (6) History of stroke Is this a current diagnosis for this admission?: Yes Plan: Continue her Coumadin (7) Subtherapeutic international normalized ratio (INR) Is this a current diagnosis for this admission?: Yes Plan: Continue Coumadin
--- NOTE | 2018-07-16 14:01 | RADIOLOGY REPORT (SQ) ---
EXAM DESCRIPTION: CHEST SINGLE VIEW COMPLETED DATE/TIME: 07/16/2018 1:41 pm REASON FOR STUDY: Bilateral pneumonia COMPARISON: 07/15/2018 EXAM PARAMETERS: NUMBER OF VIEWS: One view. TECHNIQUE: Single frontal radiographic view of the chest acquired. RADIATION DOSE: NA LIMITATIONS: None. FINDINGS: LUNGS AND PLEURA: Bilateral patchy infiltrates appear to be slightly improved. MEDIASTINUM AND HILAR STRUCTURES: No masses. Contour normal. HEART AND VASCULAR STRUCTURES: Heart size is borderline. No pulmonary edema. BONES: No acute findings. HARDWARE: None in the chest. OTHER: No other significant finding. IMPRESSION: Borderline cardiomegaly without pulmonary edema. Multicentric pneumonia with improvemen t. TECHNICAL DOCUMENTATION: JOB ID: [id number] [employer]- All Rights Reserved Reading location - IP/workstation name: [email or web address]
[2018-07-16] MEDS: ALPRAZOLAM 0.5 MG TABLET PO SCH (21:35)
[2018-07-16] MEDS: METOPROLOL TARTRATE 25 MG TABLET PO SCH (21:35)
[2018-07-16] MEDS: ZOLPIDEM TARTRATE 5 MG TABLET PO SCH (21:37)
[2018-07-17 04:42] LABS: ABSOLUTE LYMPHOCYTES (AUTO) 1.6 10^3/uL (0.5-4.7); ABSOLUTE MONOCYTES (AUTO) 0.7 10^3/uL (0.1-1.4); ABSOLUTE NEUT (AUTO) 4.3 10^3/uL (1.7-8.2); BASOPHILS % (AUTO) 0.2 % (0-2); EOSINOPHILS % (AUTO) 0.2 % (0-6); HEMATOCRIT 28.4 % (36.0-47.0); HEMOGLOBIN 9.7 g/dL (12.0-15.5); LYMPHOCYTES % (AUTO) 24.6 % (13-45); MEAN CORPUSCULAR HEMOGLOBIN 30.3 pg (27.0-33.4); MEAN CORPUSCULAR HGB CONC 34.1 g/dL (32.0-36.0); MEAN CORPUSCULAR VOLUME 89 fl (80-97); MONOCYTES % (AUTO) 10.8 % (3-13); PLATELET COUNT 186 10^3/uL (150-450); RED CELL DISTRIBUTION WIDTH 16.2 % (11.5-14.0); SEGMENTED NEUTROPHILS % (AUTO) 64.2 % (42-78); TOTAL CELLS COUNTED % (AUTO) 100 %; WHITE BLOOD COUNT 6.7 10^3/uL (4.0-10.5)
[2018-07-17 05:01] LABS: ALANINE AMINOTRANSFERASE 35 U/L (9-52); ALBUMIN 2.5 g/dL (3.5-5.0); ALKALINE PHOSPHATASE 114 U/L (38-126); ANION GAP 7 (5-19); ASPARTATE AMINO TRANSFERASE 28 U/L (14-36); BILIRUBIN,DIRECT 0.3 mg/dL (0.0-0.4); BILIRUBIN,TOTAL 0.7 mg/dL (0.2-1.3); BLOOD UREA NITROGEN 3 mg/dL (7-20); CALCIUM 7.9 mg/dL (8.4-10.2); CARBON DIOXIDE 25 mmol/L (22-30); CHLORIDE 107 mmol/L (98-107); GLUCOSE 84 mg/dL (75-110); POTASSIUM 3.2 mmol/L (3.6-5.0); TOTAL PROTEIN 5.2 g/dL (6.3-8.2)
[2018-07-17 05:23] LABS: INTERNATIONAL RATION (INR) 2.42; PROTHROMBIN TIME 27.5 SEC (11.4-15.4)
[2018-07-17] MEDS: PIPERACILLIN SODIUM/TAZOBACTAM 3.375 GM in NORMAL SALINE 100 ML IV SCH ×2 (05:23→12:14)
[2018-07-17] MEDS: NORMAL SALINE 1000 ML 1,000 ML IV PRN (05:24)
[2018-07-17] MEDS: MORPHINE SULFATE 10 MG/ML INJ IV PRN ×2 (06:18→10:41)
[2018-07-17] MEDS: CETIRIZINE 10 MG TABLET PO SCH (09:07)
[2018-07-17] MEDS: FAMOTIDINE 20 MG TABLET PO SCH (09:07)
[2018-07-17] MEDS: GABAPENTIN 300 MG CAPSULE PO SCH (09:07)
[2018-07-17] MEDS: CYCLOBENZAPRINE HCL 10 MG TABLET PO SCH ×2 (09:07→15:12)
[2018-07-17 13:03] VITALS: BP 109/71
[2018-07-17] MEDS ORDERED: POTASSIUM CHLORIDE 10 MEQ CAPSULE.ER PO ONE (15:50)
--- NOTE | 2018-07-17 16:00 | PDOC DISCHARGE SUMMARY ---
General - Admit/Disc Date/PCP Admission Date/Primary Care Provider: 07/13/18 17:14 Discharge Date: 07/17/18 - Discharge Diagnosis (1) Bilateral pneumonia Is this a current diagnosis for this admission?: Yes Summary: She responded well to antibiotics. She was able to come off oxygen. We are sending her home on cefdinir and azithromycin because Levaquin made her INR go up with her Coumadin. (2) Hypokalemia Is this a current diagnosis for this admission?: Yes Summary: She needed a replacement dose of potassium before she went home. (3) Supratherapeutic INR Is this a current diagnosis for this admission?: Yes Summary: She takes warfarin for artificial aortic valve. She was on Levaquin and it made her INR go up and so Coumadin had to be held and she got a small dose of vitamin K. This put her back into the normal range. We are not sending her home on Levaquin because of this reason. - Additional Information Resuscitation Status: Full Code Discharge Diet: Cardiac Discharge Activity: Activity As Tolerated Prescriptions: Azithromycin 500 mg PO DAILY #4 tablet Cefdinir [Omnicef 300 mg Capsule] 1 cap PO BID #8 capsule Home Medications: Warfarin Sodium [Coumadin 5 mg Tablet] 5 mg PO QHS 11/05/13 Cyclobenzaprine HCl [Flexeril 10 mg Tablet] 10 mg PO TID #20 tablet 06/28/14 Hydrocodone/Acetaminophen [Vicodin Es 7.5-300 mg Tablet] 1 tab PO TID 07/22/16 Metoprolol Tartrate 25 mg PO QHS 07/22/16 Zolpidem Tartrate [Ambien 5 mg Tablet] 10 mg PO QHS 07/22/16 Gabapentin [Neurontin] 600 mg PO BID 07/23/16 Ondansetron [Ondansetron Odt] 8 mg PO Q8HP PRN 07/13/18 Pantoprazole Sodium [Protonix] 40 mg PO DAILY 07/13/18 Albuterol Sulfate [Proair HFA Inhalation Aerosol 8.5 gm MDI] 2 puff IH Q4 PRN 07/16/18 Azithromycin 500 mg PO DAILY #4 tablet 07/17/18 Cefdinir [Omnicef 300 mg Capsule] 1 cap PO BID #8 capsule 07/17/18 Guaifenesin [Robitussin Syrup 200 mg/10 ml Ud Cup] 200 mg PO QIDP PRN udc 07/17/18 History of Present Illness History of Present Illness: AIYANA HARTMAN is a 42 year old female with history of stroke and the first stro ke happened while she was 20 years old, presented with chief complaint of nausea vomiting and diarrhea of 3 days duration. Patient has also associated fever, cough and palpitation and diaphoresis. According to EMS the patient had an oxygen saturation of 90% on room air with a temperature of 101.9 on arrival. No urinary complaints. No headache dizziness or blurring of vision or any seizure activity. Note patient states that "her whole house" has the same symptoms as her. Hospital Course Hospital Course: She was on oxygen early on but went up not requiring it. She been put on Levaquin and had an improvement in her respiratory symptoms, however it made her INR go up. 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 She did not have any signs of bleeding. She got a small dose of vitamin K and her INR came back into the therapeutic range. She will resume her usual dose of Coumadin at home. I will send her home on cefdinir and azithromycin to complete a course of therapy. Her potassium was a little bit low this morning with a place that with an oral supplement prior to discharge. Her labs and examination were reassuring she was discharged today in good condition. Physical Exam Vital Signs: Temp Pulse Resp BP Pulse Ox 98.4 F 71 18 109/71 94 07/17/18 13:01 07/17/18 13:01 07/17/18 13:01 07/17/18 13:01 07/17/18 13:01 Pulse Oximeter Continuous Start: 07/13/18 16:57 Freq: RTQ4 Status: Active Protocol: Document 07/17/18 12:00 [facility] (Rec: 07/17/18 12:09 [facility] [id number]) Pulse Oximetry Assessment Oxygen Saturation (92-100) 92 Oxygen Delivery Method Room Air Equipment Usage Equipment in Use Continuous SpO2 Machine # 14 Intake & Output 07/16/18 07/17/18 07/18/18 06:59 06:59 06:59 Intake Total 2572 3510 1100 Output Total 1800 4560 Balance 772 -1050 1100 Weight 79.1 kg 78.1 kg General appearance: PRESENT: no acute distress, cooperative, disheveled Respiratory exam: PRESENT: clear to auscultation xena, symmetrical, unlabored. ABSENT: accessory muscle use, crackles, rhonchi, tachypnea, wheezes Cardiovascular exam: PRESENT: RRR, +S1, +S2 Vascular exam: PRESENT: normal capillary refill GI/Abdominal exam: PRESENT: normal bowel sounds, soft. ABSENT: distended, guarding, rebound, tenderness Extremities exam: ABSENT: clubbing, pedal edema Musculoskeletal exam: PRESENT: normal inspection. ABSENT: deformity Neurological exam: PRESENT: alert, awake, oriented to person, oriented to place, oriented to time Psychiatric exam: PRESENT: appropriate affect, normal mood Skin exam: PRESENT: dry, warm Results Laboratory Results: 07/17/18 03:55 07/17/18 03:55 07/17/18 07/17/18 03:55 03:55 WBC 6.7 RBC 3.20 L Hgb 9.7 L Hct 28.4 L MCV 89 MCH 30.3 MCHC 34.1 RDW 16.2 H Plt Count 186 Seg Neutrophils % 64.2 Lymphocytes % 24.6 Monocytes % 10.8 Eosinophils % 0.2 Basophils % 0.2 Absolute Neutrophils 4.3 Absolute Lymphocytes 1.6 Absolute Monocytes 0.7 Absolute Eosinophils 0.0 Absolute Basophils 0.0 Sodium 139.0 Potassium 3.2 L Chloride 107 Carbon Dioxide 25 Anion Gap 7 BUN 3 L Creatinine 0.49 L Est GFR ( Amer) > 60 Est GFR (Non-Af Amer) > 60 Glucose 84 Calcium 7.9 L Total Bilirubin 0.7 AST 28 ALT 35 Alkaline Phosphatase 114 Total Protein 5.2 L Albumin 2.5 L 07/13/18 07/13/18 07/13/18 11:15 11:15 19:45 Creatine Kinase 735 H 957 H CK-MB (CK-2) 1.04 Troponin I 0.103 07/13/18 07/14/18 07/14/18 19:45 02:02 02:02 Creatine Kinase 1042 H CK-MB (CK-2) 2.31 2.70 Troponin I 0.075 0.060 07/14/18 07/14/18 07:55 07:55 Creatine Kinase 1067 H CK-MB (CK-2) 2.32 Troponin I 0.045 Impressions: Head CT 07/13/18 10:53 IMPRESSION: NORMAL BRAIN CT WITHOUT CONTRAST. EVIDENCE OF ACUTE STROKE: NO. Chest/Abdomen CTA 07/13/18 14:10 IMPRESSION: 1. Examination for pulmonary embolism is somewhat limited by breath motion artifact. Within this limitation, no evidence of pulmonary embolism through the segmental pulmonary arteries. 2. There is extensive bilateral heterogeneous and centrilobular ground-glass nodular pulmonary opacity, most conspicuous in the dependent lung bases. Findings are consistent with multifocal infection, possibly related to aspiration given the presence of a hiatal hernia and dependent distribution. 3. Moderate hiatal hernia. Chest X-Ray 07/16/18 00:00 IMPRESSION: Borderline cardiomegaly without pulmonary edema. Multicentric pneumonia with improvement. Qualifiers - * PATIENT BEING DISCHARGED WITH ANY OF THE FOLLOWING DIAGNOSIS: No
== END 2018-07-17 16:18 | disposition home or self-care (01) | DRG 195 ==
LOC: ER 10:31 → EH 17:14 → 3N 18:11
PROVIDERS: ADMIT Internal Medicine; ATTEND Internal Medicine
DX: J18.9 Pneumonia, unspecified organism (principal); E87.6 Hypokalemia; E83.42 Hypomagnesemia; R79.1 Abnormal coagulation profile; G47.00 Insomnia, unspecified; F17.210 Nicotine dependence, cigarettes, uncomplicated; K21.9 Gastro-esophageal reflux disease without esophagitis; M13.852 Other specified arthritis, left hip; M13.851 Other specified arthritis, right hip; F43.10 Post-traumatic stress disorder, unspecified; Z79.01 Long term (current) use of anticoagulants; Z86.73 Personal history of transient ischemic attack (TIA), and cerebral infarction without residual deficits; Z88.6 Allergy status to analgesic agent; Z79.899 Other long term (current) drug therapy
CPT/HCPCS: 36415; 70450; 71045; 71275; 80048; 80053; 80307; 81001; 82272; 82550; 82553; 82803; 83605; 83735; 84484; 85025; 85610; 85730; 87040; 87086; 87493; 93005; 93010; 94762; 96361; 96365; 96366; 96368; 96375; 96376; 99291; J1170; J1650; J1956; J2270; J2405; J2543; J3475; J3480; J3490; J7030; J7120; S0028

== ENCOUNTER 2018-10-29 01:16 | Emergency (ER) | payer MEDICAID ==
--- NOTE | 2018-10-29 01:47 | ER Document Report ---
ED Cardiac - General Stated Complaint: CHEST PAIN Time Seen by Provider: 10/29/18 01:46 Mode of Arrival: Ambulatory Information source: Patient Notes: HISTORY OF PRESENT ILLNESS: Patient is a 43-year-old female with a past medical history of mechanical aortic valve replacement currently on Coumadin who presents with chest pain that is sharp in nature in the middle of the chest with some radiation under the left breast. Patient does report symptoms have been intermittent for several days but acutely worsened today with shortness of breath that precipitated her visit. Location: Left chest Onset: Sudden prior to arrival Alleviation: None Provocation: Movement Quality: Sharp Radiation: Under the left breast Severity: Moderate Timing: Intermittent but never resolves History of CAD: None Associated symptoms: No fevers or chills, no cough or congestion, no vomiting or diarrhea REVIEW OF SYSTEMS: CONSTITUTIONAL : Denies fever or chills, no sweats. Denies recent illness. EENT: Denies eye, ear, throat, or mouth pain or symptoms. Denies nasal or sinus congestion. CARDIOVASCULAR: Positive for chest pain. Denies swelling of the legs. RESPIRATORY: Denies cough, cold, or chest congestion. Positive for shortness of breath. Denies wheezing. GASTROINTESTINAL: Denies abdominal pain. Denies nausea, vomiting, or diarrhea. Denies constipation. GENITOURINARY: Denies difficulty urinating, painful urination, burning, frequency, or blood in urine. MUSCULOSKELETAL: Denies neck or back pain or joint pain or swelling. SKIN: Denies rash or skin lesions. HEMATOLOGIC : Denies easy bruising or bleeding. LYMPHATIC: Denies swollen, enlarged glands. NEUROLOGICAL: Denies altered mental status or loss of consciousness. Denies headache. Denies weakness or paralysis or loss of use of either side. Denies problems with gait or speech. Denies sensory or motor loss. PSYCHIATRIC: Denies anxiety or stress or depression. All other systems reviewed and negative. PHYSICAL EXAMINATION: GENERAL: Well-appearing, well-nourished and in no acute distress. HEAD: Atraumatic, normocephalic. No scalp deformity, depression, or crepitance. EYES: Pupils are 3 mm and equal/round/reactive to light, extraocular movements intact, sclera anicteric, conjunctiva are normal. ENT: Nares patent bilaterally, oropharynx. Moist mucous membranes. No tonsil hypertrophy. NECK: Normal range of motion, supple without lymphadenopathy. LUNGS: Breath sounds present, equal, and clear to auscultation bilaterally. No wheezes, rales, or rhonchi. HEART: Regular rate and rhythm without murmurs, rubs, or gallops. 2+ peripheral pulses. Normal capillary refill. ABDOMEN: Soft, nontender, nondistended. Normoactive bowel sounds. No guarding, no rebound. No masses appreciated. BACK: Normal contour, no midline tenderness. Rectal exam deferred. GENITAL/PELVIC: Deferred. EXTREMITIES: Normal range of motion, no pitting or edema. No cyanosis. NEUROLOGICAL: No focal neurological deficits. Moves all extremities spontaneously and on command. PSYCH: Normal mood, normal affect. No suicidal thoughts/ideations. No homocidal thoughts/ideations. No hallucinations. SKIN: Warm, dry, normal turgor, no rashes or lesions noted. ASSESSMENT AND PLAN: This patient is a 43-year-old female who presents with chest pain or shortness of breath that could represent acute MD versus pulmonary embolism versus mechanical heart valve malfunction. 1. Will obtain labs, urine, cardiac enzymes, and CT angiogram of the chest. 2. Will observe and reassess. TRAVEL OUTSIDE OF THE [place] IN LAST 30 DAYS: No - Related Data Allergies/Adverse Reactions: codeine [Codeine] Allergy (Mild, Verified 07/13/18 11:09) Nausea "STOMACH BURNING" Past Medical History - General Information source: Patient - Social History Smoking Status: Current Every Day Smoker Chew tobacco use (# tins/day): No Frequency of alcohol use: None Drug Abuse: None Lives with: Family Family History: Reviewed & Not Pertinent, CVA Patient has suicidal ideation: No Patient has homicidal ideation: No - Past Medical History Cardiac Medical History: Reports: Other - History of aortic valve replacement Denies: Hx Coronary Artery Disease, Hx DVT, Hx Heart Attack, Hx Hypercholesterolemia, Hx Hypertension, Hx Pulmonary Embolism Pulmonary Medical History: Reports: None Denies: Hx Asthma, Hx Bronchitis, Hx COPD, Hx Pneumonia EENT Medical History: Reports: None Neurological Medical History: Reports: Hx Cerebrovascular Accident. Denies: Hx Seizures Endocrine Medical History: Reports: None. Denies: Hx Diabetes Mellitus Type 1, Hx Diabetes Mellitus Type 2, Hx Hyperthyroidism, Hx Hypothyroidism Renal/ Medical History: Reports: Hx Kidney Stones. Denies: Hx Peritoneal Dialysis Malignancy Medical History: Reports: None GI Medical History: Reports: Hx Gastroesophageal Reflux Disease - History of same; hasn't bothered her recently.. Denies: Hx Cirrhosis, Hx Gastritis, Hx Hepatitis Musculoskeletal Medical History: Reports Hx Arthritis - Hips Skin Medical History: Reports None, Denies Hx Eczema, Denies Hx Psoriasis Psychiatric Medical History: Reports: Hx Post Traumatic Stress Disorder Denies: Hx Depression Traumatic Medical History: Reports: None Infectious Medical History: Reports: None. Denies: Hx Hepatitis Past Surgical History: Reports: Hx Cardiac Surgery - mechanical aortic valve replacement, Hx Section - x2, Hx Orthopedic Surgery - L5 S1 fusion, Hx Tubal Ligation, Other - [facility] AVR, '. - Immunizations Hx Diphtheria, Pertussis, Tetanus Vaccination: Yes Physical Exam - Vital signs Vitals: Temp Resp Pulse Ox 98.5 F 22 H 100 10/29/18 01:28 10/29/18 01:28 10/29/18 01:28 Course - Re-evaluation Re-evalutation: 10/29/18 03:52 CT angiogram of the chest is negative for acute pulmonary embolism. Initial set of blood work, including troponin, is normal. Plan is to obtain second troponin and reassess for discharge if second troponin is negative. Signout has been given to Dr. Estevez. - Vital Signs Vital signs: Temp Pulse Resp BP Pulse Ox 98.5 F 20 123/83 100 10/29/18 01:28 10/29/18 01:29 10/29/18 01:29 10/29/18 01:29 - Laboratory Result Diagrams: 10/29/18 01:27 10/29/18 01:27 Laboratory results interpreted by me: 10/29/18 10/29/18 10/29/18 01:27 01:27 01:27 RBC 3.42 L Hgb 10.7 L Hct 30.7 L RDW 15.6 H PT 18.7 H Potassium 3.3 L Chloride 110 H - Diagnostic Test Radiology reviewed: Image reviewed, Reports reviewed - EKG Interpretation by Me EKG shows normal: Sinus rhythm Rate: Normal Rhythm: NSR [place]/QRS: No: Right axis deviation, Left axis deviation, RBBB, LBBB, IVCD, LAHB/LAFB, LPHB/LPFB, Bifasicular block Voltage: No: Increased voltage, Consistant with LVH, Decreased voltage, Throughout, Limb leads P Waves: No: ANTONIO, LAE, Absent, AV Dissociation, Other Heart block present: No: 1st Degree, Mobitz 1, Mobitz 2, CHB (3rd degree block) When compared to previous EKG there are: No significant change - Transfer of Care Care transferred to following provider: Dr. Estevez Discharge - Discharge Clinical Impression: Chest pain Qualifiers: Chest pain type: unspecified Qualified Code(s): R07.9 - Chest pain, unspecified Condition: Good Disposition: HOME, SELF-CARE Instructions: Chest Pain of Unclear Cause ([facility]) Additional Instructions: You have been evaluated in the Emergency Department for chest pain. While here, you had blood work that was normal and a CAT scan of your chest did not show evidence of a blood clot or malfunction of your valve. It is now safe to be discharged home. Please follow-up with your primary physician as well as your hatchery worker as instructed in the next 24 to 72 hours to discuss having an outpa tient stress test. Return to the Emergency Department if you experience worsening pain, difficulty breathing, or any other concerning symptoms. Referrals: RICHA GUZMAN MD [Primary Care Provider] - Follow up as needed SUDHA GALINDO MD [ACTIVE STAFF] - Follow up as needed Print Language: Yakut
[2018-10-29 01:51] LABS: ABSOLUTE BASOPHILS # (AUTO) 0.1 10^3/uL (0.0-0.2); ABSOLUTE EOSINOPHILS # (AUTO) 0.2 10^3/uL (0.0-0.6); ABSOLUTE LYMPHOCYTES (AUTO) 2.1 10^3/uL (0.5-4.7); ABSOLUTE MONOCYTES (AUTO) 0.5 10^3/uL (0.1-1.4); ABSOLUTE NEUT (AUTO) 5.9 10^3/uL (1.7-8.2); BASOPHILS % (AUTO) 0.6 % (0-2); EOSINOPHILS % (AUTO) 1.9 % (0-6); HEMATOCRIT 30.7 % (36.0-47.0); HEMOGLOBIN 10.7 g/dL (12.0-15.5); MEAN CORPUSCULAR HEMOGLOBIN 31.3 pg (27.0-33.4); MEAN CORPUSCULAR HGB CONC 34.9 g/dL (32.0-36.0); MEAN CORPUSCULAR VOLUME 90 fl (80-97); MONOCYTES % (AUTO) 5.7 % (3-13); PLATELET COUNT 273 10^3/uL (150-450); RED BLOOD COUNT 3.42 10^6/uL (3.72-5.28); RED CELL DISTRIBUTION WIDTH 15.6 % (11.5-14.0); SEGMENTED NEUTROPHILS % (AUTO) 67.8 % (42-78); TOTAL CELLS COUNTED % (AUTO) 100 %; WHITE BLOOD COUNT 8.7 10^3/uL (4.0-10.5)
[2018-10-29 02:24] LABS: ALANINE AMINOTRANSFERASE 18 U/L (9-52); ALBUMIN 3.9 g/dL (3.5-5.0); ALKALINE PHOSPHATASE 84 U/L (38-126); ANION GAP 9 (5-19); ASPARTATE AMINO TRANSFERASE 15 U/L (14-36); BILIRUBIN,DIRECT 0.2 mg/dL (0.0-0.4); BILIRUBIN,TOTAL 0.4 mg/dL (0.2-1.3); BLOOD UREA NITROGEN 9 mg/dL (7-20); CALCIUM 9.8 mg/dL (8.4-10.2); CARBON DIOXIDE 22 mmol/L (22-30); CHLORIDE 110 mmol/L (98-107); CREATINE KINASE 61 U/L (30-135); GLUCOSE 86 mg/dL (75-110); POTASSIUM 3.3 mmol/L (3.6-5.0); SODIUM 140.7 mmol/L (137-145); TOTAL PROTEIN 6.6 g/dL (6.3-8.2)
[2018-10-29 02:33] LABS: INTERNATIONAL RATION (INR) 1.49; PROTHROMBIN TIME 18.7 SEC (11.4-15.4)
[2018-10-29 02:34] LABS: PARTIAL THROMBOPLASTIN TIME 29.9 SEC (23.5-35.8)
[2018-10-29 02:42] LABS: CREATINE KINASE MB 0.48 ng/mL (<4.55)
[2018-10-29 02:51] LABS: TROPONIN I < 0.012 ng/mL
--- NOTE | 2018-10-29 03:07 | RADIOLOGY REPORT (SQ) ---
EXAM DESCRIPTION: XR CHEST 1 VIEW COMPLETED DATE/TME: 10/29/2018 01:32 CLINICAL HISTORY: 43 years Female, chest pain COMPARISON:Jul 16 2018 NUMBER OF VIEWS/TECHNIQUE: 1/AP FINDINGS: Adequate lung volume, clear parenchyma, prominent cardiac silhouette, and intact bony thorax.Sternotomy. IMPRESSION: No acute cardiopulmonary findings.
--- NOTE | 2018-10-29 03:20 | RADIOLOGY REPORT (SQ) ---
CLINICAL HISTORY: Chest pain COMPARISON: None. TECHNIQUE: CT CHEST ANGIOGRAPHY WITHOUT THEN WITH IV CONTRAST on 10/29/2018 2:17 AM CDT. MIPS reconstructions were generated. This exam was performed according to our departmental dose-optimization program, which includes automated exposure control, adjustment of the mA and/or kV according to patient size and/or use of iterative reconstruction technique. MIP images were generated. FINDINGS: The ascending thoracic aorta is dilated measuring 4.5 cm. There is no dissection. Main pulmonary artery is mildly dilated at 3.1 cm. 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 The heart is moderately enlarged. There is no pericardial effusion. Intrathoracic lymph nodes are not enlarged. There is no pleural effusion, pleural thickening or pneumothorax. Central airways are patent. Lungs are clear with no consolidation, mass or interstitial lung disease. There are no acute abnormalities within the limited images of the upper abdomen. There are no acute osseous findings. No suspicious bony lesions. IMPRESSION: Mild proximal ascending aortic dilatation without dissection. Borderline pulmonary artery diameter without acute or chronic filling defects. No pneumonia.
[2018-10-29] MEDS ORDERED: ONDANSETRON HCL INJ/PF 4 MG/2 ML SDV IV ONE (04:04)
[2018-10-29] MEDS ORDERED: MORPHINE SULFATE 10 MG/ML INJ IV ONE (04:04)
[2018-10-29] MEDS ORDERED: ACETAMINOPHEN 325 MG TABLET PO ONE (06:36)
[2018-10-29 06:59] VITALS: BP 136/88
--- NOTE | 2018-10-29 23:58 | EKG REPORT ---
SEVERITY:- ABNORMAL ECG - SINUS RHYTHM NONSPECIFIC T ABNORMALITIES, ANTERIOR LEADS : Confirmed by: Machelle Cordova 29-Oct-2018 23:56:47
== END 2018-10-29 06:59 | disposition home or self-care (01) ==
LOC: ER 01:16
DX: R07.9 Chest pain, unspecified (principal); F17.200 Nicotine dependence, unspecified, uncomplicated; Z86.73 Personal history of transient ischemic attack (TIA), and cerebral infarction without residual deficits; Z95.2 Presence of prosthetic heart valve; Z79.02 Long term (current) use of antithrombotics/antiplatelets; Z88.6 Allergy status to analgesic agent; Z87.442 Personal history of urinary calculi; Z98.51 Tubal ligation status
CPT/HCPCS: 93005; 99285; 96372; 96374; 36415; 82553; 82550; 85025; 85610; 85730; 80053; 84484; 71045; 71275; 93010; J3490; J2270; J2405

== ENCOUNTER 2019-01-19 03:52 | Emergency (ER) | payer MEDICAID ==
[2019-01-19] MEDS ORDERED: ONDANSETRON HCL INJ/PF 4 MG/2 ML SDV IV ONE (04:18)
[2019-01-19] MEDS ORDERED: MORPHINE SULFATE 10 MG/ML INJ IV ONE (04:18)
[2019-01-19] MEDS ORDERED: NORMAL SALINE 1000 ML 1,000 ML IV ONE (04:19)
--- NOTE | 2019-01-19 04:25 | ER Document Report ---
ED GI/ - General TRAVEL OUTSIDE OF THE [place] IN LAST 30 DAYS: No <WILFREDO ORTEZ - Last Filed: 01/19/19 08:09> <GUNNARMARSHA Donnie - Last Filed: 01/19/19 12:35> - General Stated Complaint: VOMITING,RIGHT LOWER ABDOMINAL PAIN Time Seen by Provider: 01/19/19 04:13 Primary Care Provider: RICHA GUZMAN MD [Primary Care Provider] - Follow up as needed Notes: Patient is a 43-year-old female that comes to the Emergency Department for chief complaint of abdominal pain and vomiting. She has also had several episodes of loose stool. Denies hematemesis or hematochezia. Pain is diffuse but worst in the right lower quadrant. Pain developed over the past day, she states she has had chills, she started vomiting this evening. Denies flank pain, chest pain, dysuria, vaginal bleeding or discharge. She has had cholecystectomy, 2 hernia repairs, . She is also on Coumadin for an aortic valve replacement. (WILFREDO ORTEZ) - Related Data Allergies/Adverse Reactions: codeine [Codeine] Allergy (Mild, Verified 07/13/18 11:09) Nausea "STOMACH BURNING" Past Medical History - General Information source: Patient - Social History Smoking Status: Never Smoker Frequency of alcohol use: None Drug Abuse: None Lives with: Alone Family History: Reviewed & Not Pertinent, CVA - Past Medical History Cardiac Medical History: Reports: Other - Aortic valve replacement Denies: Hx Coronary Artery Disease, Hx DVT, Hx Heart Attack, Hx Hypercholesterolemia, Hx Hypertension, Hx Pulmonary Embolism Pulmonary Medical History: Denies: Hx Asthma, Hx Bronchitis, Hx COPD, Hx Pneumonia Neurological Medical History: Reports: Hx Cerebrovascular Accident. Denies: Hx Seizures Endocrine Medical History: Denies: Hx Diabetes Mellitus Type 1, Hx Diabetes Mellitus Type 2, Hx Hyperthyroidism, Hx Hypothyroidism Renal/ Medical History: Reports: Hx Kidney Stones. Denies: Hx Peritoneal Dialysis GI Medical History: Reports: Hx Gastroesophageal Reflux Disease. Denies: Hx Cirrhosis, Hx Gastritis, Hx Hepatitis Musculoskeletal Medical History: Reports Hx Arthritis - Hips Skin Medical History: Denies Hx Eczema, Denies Hx Psoriasis Psychiatric Medical History: Reports: Hx Post Traumatic Stress Disorder Denies: Hx Depression Infectious Medical History: Denies: Hx Hepatitis Past Surgical History: Reports: Hx Cardiac Surgery - mechanical aortic valve replacement, Hx Section - x2, Hx Cholecystectomy, Hx Orthopedic Surgery - L5 S1 fusion, Hx Tubal Ligation, Other - [facility] AVR, '93. - Immunizations Hx Diphtheria, Pertussis, Tetanus Vaccination: Yes <WILFREDO ORTEZ - Last Filed: 01/19/19 08:09> Review of Systems - Review of Systems Constitutional: See HPI EENT: No symptoms reported Cardiovascular: No symptoms reported Respiratory: No symptoms reported Gastrointestinal: See HPI Genitourinary: No symptoms reported Female Genitourinary: No symptoms reported Musculoskeletal: No symptoms reported Skin: No symptoms reported Hematologic/Lymphatic: No symptoms reported Neurological/Psychological: No symptoms reported <WILFREDO ORTEZ - Last Filed: 01/19/19 08:09> Physical Exam <WILFREDO ORTEZ - Last Filed: 01/19/19 08:09> - Vital signs Vitals: Temp Pulse Resp BP Pulse Ox 97.9 F 99 18 127/85 H 98 01/19/19 03:56 01/19/19 03:56 01/19/19 03:56 01/19/19 03:56 01/19/19 03:56 - Notes Notes: GENERAL: Vomiting during exam, appears uncomfortable and restless HEAD: Normocephalic, atraumatic. EYES: Pupils equal, round, and reactive to light. Extraocular movements intact. ENT: Oral mucosa dry, tongue midline. Oropharynx unremarkable. Airway patent. NECK: Full range of motion. Supple. Trachea midline. LUNGS: Clear to auscultation bilaterally, no wheezes, rales, or rhonchi. No respiratory distress. HEART: Regular rate and rhythm. No murmur ABDOMEN: Generalized abdominal tenderness, seems worse in the right lower quadrant. No rigidity or rebound tenderness. GENITOURINARY: Deferred EXTREMITIES: Moves all 4 extremities spontaneously. No edema, normal radial and dorsalis pedis pulses bilaterally. No cyanosis. BACK: no cervical, thoracic, lumbar midline tenderness. No saddle anesthesia, normal distal neurovascular exam. Moves all extremities in full range of motion. NEUROLOGICAL: Alert and oriented x3. Normal speech. Cranial nerves II through XII grossly intact. PSYCH: Restless. SKIN: Warm, dry, normal turgor. No rashes or lesions noted. (WILFREDO ORTEZ) Course - Laboratory Result Diagrams: 01/19/19 04:20 01/19/19 04:20 <WILFREDO ORTEZ - Last Filed: 01/19/19 08:09> - Laboratory Result Diagrams: 01/19/19 04:20 01/19/19 11:07 <GUNNARMARSHA Donnie - Last Filed: 01/19/19 12:35> - Re-evaluation Re-evalutation: Patient appears very uncomfortable initially. She vomited while I was evaluating her. She has diffuse generalized tenderness but tenderness does seem worst in the right lower quadrant. Given pain medication, nausea medication, IV fluids. CBC shows mild leukocytosis at greater than 13,000 with elevation of neutrophils but no bandemia. Chemistry shows hypokalemia, hypomagnesemia, unremarkable otherwise. Replacing both. EKG shows possible U wave, otherwise unremarkable. Urinalysis still pending. Attempted to perform CT of the abdomen and pelvis with IV and oral contrast because of her tenderness and presentation, however patient has vomited twice trying to drink contrast despite medications. CAT scan was therefore performed with IV contrast only. CAT scan showing evidence of enteritis with fluid filled GI tract, does not show acute appendicitis, shows additional dilation of the biliary ductal area. I reevaluated patient, she does appear better. She has mild diffuse abdominal tenderness now without guarding, she is not focally tender in the right upper quadrant. She also does not have elevated bilirubin, lipase, or alk phos. I discussed with patient. She will be given some additional fluids, we are still replacing electrolytes, she will attempt p.o. first and then she will be reevaluated. Discussed with Dr. Grimm. 01/19/19 08:11 Patient is doing much better now, requesting esther iwona. Patient will have her electrolytes repeated, if she is tolerating p.o. that she will be discharged for suspected viral gastroenteritis with instructions and return precautions. Patient states agreement with plan. Introduced to Nguyen Maher at bedside. (WILFREDO ORTEZ) - Vital Signs Vital signs: Temp Pulse Resp BP Pulse Ox 97.9 F 99 20 127/85 H 99 01/19/19 03:56 01/19/19 03:56 01/19/19 07:00 01/19/19 03:56 01/19/19 07:00 - Laboratory Laboratory results interpreted by me: 01/19/19 01/19/19 01/19/19 04:20 04:20 04:20 WBC 13.4 H Hgb 10.9 L Hct 33.0 L RDW 15.9 H Seg Neutrophils % 88.7 H Lymphocytes % 5.2 L Absolute Neutrophils 11.9 H PT 22.6 H Potassium 3.0 L* Chloride 113 H Carbon Dioxide 21 L Creatinine 0.48 L Calcium 8.0 L Magnesium 01/19/19 01/19/19 04:20 11:07 WBC Hgb Hct RDW Seg Neutrophils % Lymphocytes % Absolute Neutrophils PT Potassium Chloride Carbon Dioxide Creatinine Calcium 8.3 L Magnesium 1.3 L - EKG Interpretation by Me Additional EKG results interpreted by me: 01/19/19 05:21 EKG shows sinus rhythm at a rate of 94, possible U wave in the anterior leads, normal axis. No T wave inversions or ST segment changes in consecutive leads. QTc of 476. (WILFREDO ORTEZ) - Transfer of Care Notes: 01/19/19 Rounded with LUCIANO Villalobos on this patient. She came in last night with Abd pain, [place]. She has some electrolyte changes and by the end of Wilfredo's shift, she was feeling better. She is getting Mag and Potassium replacement. She has been tolerating PO gingerale and has not been vomiting any further. Will r epeat electrolytes for patient. Noted repeat lab work which is definitely improved. Patient continues to do better. She would like to be discharged home. Encouraged pushing fluids and bland diet. Urged to return if she worsens at all. Follow up with PCP. Patient and family who is bedside agree. (MARSHA MAHER) Discharge <WILFREDO ORTEZ - Last Filed: 01/19/19 08:09> <MARSHA MAHER - Last Filed: 01/19/19 12:35> - Discharge Clinical Impression: Nausea vomiting and diarrhea, Hypokalemia, Hypomagnesemia Abdominal pain Qualifiers: Abdominal location: generalized Qualified Code(s): R10.84 - Generalized abdominal pain Condition: Stable Disposition: HOME, SELF-CARE Additional Instructions: Your evaluation is most consistent with a viral illness. This should resolve with time. We began replacing your I recommend supplementing potassium and magnesium in your diet at home. Start with bland food and clear fluids, electro lytes, progress slowly. Take Phenergan if needed for nausea, take Pepcid to help recover from this. Follow-up with primary care. Return if you worsen including return for worsening abdominal pain, uncontrolled vomiting, fevers, or any other concerning or worsening symptoms. Prescriptions: Famotidine [Pepcid 20 mg Tablet] 20 mg PO BID #12 tablet Promethazine HCl [Phenergan 25 mg Tablet] 25 mg PO Q6H PRN #20 tablet PRN Reason: Forms: Return to Work Referrals: RICHA GUZMAN MD [Primary Care Provider] - Follow up as needed
[2019-01-19 04:39] LABS: ABSOLUTE BASOPHILS # (AUTO) 0.1 10^3/uL (0.0-0.2); ABSOLUTE EOSINOPHILS # (AUTO) 0.2 10^3/uL (0.0-0.6); ABSOLUTE LYMPHOCYTES (AUTO) 0.7 10^3/uL (0.5-4.7); ABSOLUTE MONOCYTES (AUTO) 0.5 10^3/uL (0.1-1.4); ABSOLUTE NEUT (AUTO) 11.9 10^3/uL (1.7-8.2); BASOPHILS % (AUTO) 0.6 % (0-2); EOSINOPHILS % (AUTO) 1.5 % (0-6); HEMOGLOBIN 10.9 g/dL (12.0-15.5); LYMPHOCYTES % (AUTO) 5.2 % (13-45); MEAN CORPUSCULAR HEMOGLOBIN 29.2 pg (27.0-33.4); MEAN CORPUSCULAR HGB CONC 33.1 g/dL (32.0-36.0); MEAN CORPUSCULAR VOLUME 88 fl (80-97); PLATELET COUNT 290 10^3/uL (150-450); RED BLOOD COUNT 3.73 10^6/uL (3.72-5.28); RED CELL DISTRIBUTION WIDTH 15.9 % (11.5-14.0); SEGMENTED NEUTROPHILS % (AUTO) 88.7 % (42-78); TOTAL CELLS COUNTED % (AUTO) 100 %; WHITE BLOOD COUNT 13.4 10^3/uL (4.0-10.5)
[2019-01-19 04:45] LABS: INTERNATIONAL RATION (INR) 1.96; PROTHROMBIN TIME 22.6 SEC (11.4-15.4)
[2019-01-19 05:01] LABS: ALANINE AMINOTRANSFERASE 25 U/L (9-52); ALBUMIN 3.6 g/dL (3.5-5.0); ALKALINE PHOSPHATASE 102 U/L (38-126); ANION GAP 7 (5-19); ASPARTATE AMINO TRANSFERASE 18 U/L (14-36); BILIRUBIN,DIRECT 0.2 mg/dL (0.0-0.4); BILIRUBIN,TOTAL 0.4 mg/dL (0.2-1.3); BLOOD UREA NITROGEN 16 mg/dL (7-20); CARBON DIOXIDE 21 mmol/L (22-30); CHLORIDE 113 mmol/L (98-107); GLUCOSE 105 mg/dL (75-110); LIPASE 107.9 U/L (23-300); SODIUM 141.1 mmol/L (137-145); TOTAL PROTEIN 6.5 g/dL (6.3-8.2)
[2019-01-19] MEDS ORDERED: HYDROMORPHONE HCL INJ/PF 2 MG/ML AMPULE IV ONE (05:11)
[2019-01-19] MEDS: POTASSI CL 20 MEQ/50 ML RIDER 20 MEQ/50 ML RTUPB IV SCH ×2 (06:17→07:45)
--- NOTE | 2019-01-19 06:29 | RADIOLOGY REPORT (SQ) ---
CT abdomen and pelvis with contrast on 01/19/2019 at 5:43 AM CLINICAL INDICATION: Right lower quadrant pain, vomiting TECHNIQUE: Multiple axial images are obtained throughout the abdomen and pelvis following the administration of IV contrast. This exam was performed according to our departmental dose-optimization program, which includes automated exposure control, adjustment of the mA and/or kV according to patient size and/or use of iterative reconstruction technique. Total DLP is 983.6 mGy*cm. COMPARISON: 02/08/1714 FINDINGS: Abdomen: There is minimal basilar atelectasis. There is a small to moderate-sized hiatal hernia. The patient is status post cholecystectomy. There has been worsening of intra and extrahepatic biliary ductal dilatation when compared with the prior exam. While this may be related to postcholecystectomy state, the worsening since the prior exam raises a question of choledocholithiasis. Common duct measures up to 1.3 cm in greatest diameter. Would recommend follow-up MRCP or ERCP to better evaluate. Solid abdominal organs are otherwise unremarkable. There is no abdominal adenopathy. There is no free fluid or free air within the abdomen. GI tract is relatively fluid filled including in the colon suggesting a diarrheal illness and may be related to gastroenteritis. The abdominal portion of the GI tract is otherwise unremarkable. Pelvis: Pelvic portion of the GI tract including the appendix is otherwise unremarkable. Pelvic organs appear unremarkable by CT. There is no free fluid in the pelvis. There is no pelvic adenopathy. Degenerative changes are noted in the lower lumbar spine. Postsurgical changes are noted at L5-S1. IMPRESSION: 1. Worsening intra and extra hepatic biliary ductal dilatation without definite identifiable cause on this exam. Would recommend follow-up MRCP or ERCP to better evaluate. 2. Fluid-filled GI tract especially in the colon consistent with a diarrheal illness and may be related to gastroenteritis.
[2019-01-19] MEDS ORDERED: PROMETHAZINE HCL 25 MG TABLET PO ONE (06:53)
[2019-01-19] MEDS ORDERED: OXYCODONE-ACETAMINOPHEN 5-325 MG TABLET PO ONE (06:53)
[2019-01-19 06:54] LABS: APPEARANCE,URINE CLEAR; BILIRUBIN,URINE NEGATIVE (NEGATIVE); COLOR,URINE YELLOW; GLUCOSE, URINE NEGATIVE (NEGATIVE); KETONES,URINE NEGATIVE (NEGATIVE); LEUKOCYTE ESTERASE,URINE NEGATIVE (NEGATIVE); NITRITE,URINE NEGATIVE (NEGATIVE); PROTEIN,URINE NEGATIVE (NEGATIVE); UROBILINOGEN,URINE NEGATIVE mg/dL (<2.0)
[2019-01-19] MEDS ORDERED: FAMOTIDINE 20 MG TABLET PO ONE (06:54)
[2019-01-19 06:55] LABS: URINE SPECIFIC GRAVITY > 1.060
[2019-01-19] MEDS ORDERED: NORMAL SALINE 500 ML IV ONE (06:57)
[2019-01-19] MEDS: MAGNESIUM SULFATE/D5W 1 GM/100 ML RTUPB IV SCH ×2 (07:02→07:47)
[2019-01-19 11:45] LABS: ANION GAP 5 (5-19); BLOOD UREA NITROGEN 14 mg/dL (7-20); CALCIUM 8.3 mg/dL (8.4-10.2); CARBON DIOXIDE 26 mmol/L (22-30); CHLORIDE 106 mmol/L (98-107); GLUCOSE 105 mg/dL (75-110); SODIUM 137.4 mmol/L (137-145)
[2019-01-19 11:53] LABS: POTASSIUM 4.2 mmol/L (3.6-5.0)
[2019-01-19 12:41] VITALS: BP 109/87
--- NOTE | 2019-01-19 22:26 | EKG REPORT ---
SEVERITY:- ABNORMAL ECG - SINUS RHYTHM NONSPECIFIC T ABNORMALITIES, ANTERIOR LEADS : Confirmed by: Machelle Cordova 19-Jan-2019 22:24:31
== END 2019-01-19 12:41 | disposition home or self-care (01) ==
LOC: ER 03:52
DX: K52.9 Noninfective gastroenteritis and colitis, unspecified (principal); K83.8 Other specified diseases of biliary tract; R10.84 Generalized abdominal pain; R10.817 Generalized abdominal tenderness; R11.2 Nausea with vomiting, unspecified; D72.829 Elevated white blood cell count, unspecified; E83.42 Hypomagnesemia; E87.6 Hypokalemia; R68.83 Chills (without fever); Z90.49 Acquired absence of other specified parts of digestive tract; Z79.01 Long term (current) use of anticoagulants; Z95.2 Presence of prosthetic heart valve; Z88.5 Allergy status to narcotic agent; Z87.442 Personal history of urinary calculi; Z87.19 Personal history of other diseases of the digestive system
CPT/HCPCS: 93005; 99284; 96361; 96375; 96365; 96366; 96368; 36415; 83690; 83735; 85025; 85610; 80053; 81001; 74177; 93010; J3490 ×2; J2270; J1170; J3475; J2405; J3480; J7030; J7040

== ENCOUNTER → 2019-11-29 | Outpatient (CLI) | payer MEDICAID ==
--- NOTE | 2019-11-29 13:31 | ER RDC ASSESSMENT REPORT ---
Intake - In the Last 14 days Have you traveled outside [place]?: No Have you been in close contact with someone CONFIRMED: Yes Worked in Healthcare?: No - Symptoms Subjective Fever([place] feverish): No Chills: No Muscule Aches: No Runny Nose: Yes Sore Throat: Yes Cough (New or worsening chronic cough): No Shortness of breath: No Nausea or Vomiting: No Headache: Yes Abdominal Pain: No Diarrhea(3 or more loose stools in last 24 hours): No - Do you have any of the following Chronic lung disease: Asthma or emphysema or COPD: Yes Chronic Lung Disease Comment: Asthma Cystic Fibrosis: No Diabetes: No High Blood Pressure: No Cardiovascular Disease: Yes Cardiovascular Disease Comment: CHF, Valve Replacement, and Hx of Rheumatic Fever. Chronic Kidney Disease: No Chronic Liver Disease: No Chronic blood disorder like Sickle Cell Disease: No Weak immune system due to disease or medication: No Neurologic condition that limits movement: Yes Neurological Condition Comment: Fibromyalgia Developmental delay - Moderate to Severe: No Recent (within past 2 weeks) or current : No Morbid Obesity (>100 pounds over ideal weight): No - Objective Temperature: 97.7 F Pulse Rate: 75 Respiratory Rate: 20 Blood Pressure: 131/71 O2 Sat by Pulse Oximetry: 99 Objective: Patient is a well-appearing 44-year-old female, who presents today for COVID-19 screening. Disposition: Home; Selfcare General - General Stated Complaint: Upper respiratory symptoms x4 days Mode of Arrival: Ambulatory Information source: Patient Notes: The patient was evaluated during the global COVID-19 pandemic. That diagnosis was suspected/considered upon initial presentation. Their evaluation, treatment, and testing was consistent with current guidelines for patients who present with complaints or symptoms that may be related to COVID-19. Patient reports she has community exposure to an individual with lab confirmed positive COVID-19. - HPI Patient complains to provider of: Upper respiratory symptoms Onset: Other - 4 days Onset/Duration: Persistent Quality of pain: Achy Severity: None Pain Level: Denies Associated symptoms: Headache, Rhinnorhea, Sore throat Exacerbated by: Denies Relieved by: Denies Similar symptoms previously: No Recently seen / treated by doctor: No - Related Data Allergies/Adverse Reactions: codeine [Codeine] Allergy (Mild, Verified 07/13/18 11:09) Nausea "STOMACH BURNING" Past Medical History - Social History Smoking Status: Current Every Day Smoker Cigarette use (# per day): Yes - Half pack per day Chew tobacco use (# tins/day): No Smoking Education Provided: Yes Frequency of alcohol use: Occasional Drug Abuse: None Occupation: Unemployed Lives with: Family Family History: Reviewed & Not Pertinent, CVA Patient has suicidal ideation: No Patient has homicidal ideation: No - Past Medical History Cardiac Medical History: Denies: Hx Coronary Artery Disease, Hx DVT, Hx Heart Attack, Hx Hypercholesterolemia, Hx Hypertension, Hx Pulmonary Embolism Pulmonary Medical History: Denies: Hx Asthma, Hx Bronchitis, Hx COPD, Hx Pneumonia Neurological Medical History: Reports: Hx Cerebrovascular Accident. Denies: Hx Seizures Endocrine Medical History: Denies: Hx Diabetes Mellitus Type 1, Hx Diabetes Mellitus Type 2, Hx Hyperthyroidism, Hx Hypothyroidism Renal/ Medical History: Reports: Hx Kidney Stones. Denies: Hx Peritoneal Dialysis GI Medical History: Reports: Hx Gastroesophageal Reflux Disease. 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 Physical Exam - General In distress: None Notes: PHYSICAL EXAMINATION: GENERAL: Well-appearing and in no acute distress. HEAD: Atraumatic, normocephalic. EYES: sclera anicteric, conjunctiva are normal. ENT: nares patent. Moist mucous membranes. NECK: Normal range of motion, supple without lymphadenopathy. LUNGS: CTAB and equal. No wheezes rales or rhonchi. HEART: Regular rate and rhythm without murmurs. EXTREMITIES: Normal range of motion, no pitting edema. No cyanosis. BACK: No midline or CVA tenderness. NEUROLOGICAL: Cranial nerves grossly intact. Normal speech. PSYCH: Normal mood, normal affect. SKIN: Warm, Dry, normal color and turgor, no obvious lesions or rash noted. Diagnostic Results Laboratory Results: Patient advised at this time they are considered a Person Under Investigation (PUI) for the COVID-19 Coronavirus. They have been made aware it is currently taking 3-5 days to receive their results, and The [facility] Department will call to advise them of their result, whether it is POSITIVE or NEGATIVE. Patient Education/Counseling Counseling/Education: Patient presents with upper respiratory symptoms worrisome for possible COVID- 19. Patient does not have symptoms worrisome as an emergency such as difficulty breathing, shortness of breath, chest pain, pressure, confusion or cyanosis. Patient appears suitable for discharge. Patient's vital signs are stable and patient is nontoxic in appearance. Good return precautions have been discussed with patient, patient verbalized understanding and is agreeable with discharge plan of care at this time. Patient provided COVID-19 discharge instructions to include: As a person under investigation for COVID-19, the [place] department of Health and Human Services, division of public health advises you to adhere to the following guidance until your test results are reported to you. If your test result is positive, you will receive additional information from your provider and your local health department at that time. Remain at home until you are cleared by the health provider or public health authorities. Keep a log of visitors to your home, notify any visitors to your home of your isolation status. If you plan to move to a new address or leave the [facility], notify the local health department in your County. Call your doctor or seek care if you have an urgent medical need. Before seeking medical care, call ahead to get instructions from the provider before arriving at the medical office clinic or hospital. Notify them that you are mandie ng tested for the virus that causes COVID-19 so that arrangements can be made, as necessary, to prevent transmission to others in the healthcare setting. Next, notify the local health department in your county. If a medical emergency arises and you need to call 911, inform dispatch and the first responders that you are being tested for the virus that causes COVID-19. Next, notify the local health department in your county. Patient provided education on smoking cessation and the harmful effects of smoking, especially in the presence of Co-morbid conditions such as Hypertension, Diabetes, and/or other chronic illnesses. Patient verbalized understanding of smoking cessation education, and the increased health benefits of quitting. Guidance for worsening S/SX: For worsening symptoms, patient has been advised to contact their Primary Care Provider, or go to the nearest Emergency Department. RDC Discharge - Discharge Clinical Impression: COVID-19 Screening URI (upper respiratory infection) Qualifiers: URI type: unspecified URI Qualified Code(s): J06.9 - Acute upper respiratory infection, unspecified Condition: Stable Disposition: Home; Selfcare
[2019-11-29 13:35] VITALS: BP 131/71
== END ==
LOC: RDC 12:20
PROVIDERS: ATTEND Nurse Practitioner Family
DX: Z20.828 Contact with and (suspected) exposure to other viral communicable diseases (principal); J06.9 Acute upper respiratory infection, unspecified; J02.9 Acute pharyngitis, unspecified; R09.89 Other specified symptoms and signs involving the circulatory and respiratory systems; J45.909 Unspecified asthma, uncomplicated; I50.9 Heart failure, unspecified; M79.7 Fibromyalgia; F17.210 Nicotine dependence, cigarettes, uncomplicated; K21.9 Gastro-esophageal reflux disease without esophagitis; F43.10 Post-traumatic stress disorder, unspecified; Z95.2 Presence of prosthetic heart valve
CPT/HCPCS: 87635